=== PATIENT | male | born 1940 | race Caucasian/White ===

== ENCOUNTER 2022-02-19 14:38 | Outpatient (RCR) | payer MEDICARE, SELFPAY ==
[2022-02-19 14:50] VITALS: BP 111/55; PULSE 77; RESP 16; TEMP 36.3; O2SAT 98
[2022-02-19] MEDS: PEGFILGRASTIM 6 MG/0.6 ML SYRINGE SUBCUT (15:13)
== END 2022-02-20 23:59 | disposition home or self-care (01) ==
LOC: CCIC 14:38
PROVIDERS: Visit Provider Clinical Nurse Specialist
DX: C25.9 Malignant neoplasm of pancreas, unspecified (principal); D84.821 Immunodeficiency due to drugs; T45.1X5A Adverse effect of antineoplastic and immunosuppressive drugs, initial encounter
CPT/HCPCS: 96374; 99211; J2506

== ENCOUNTER 2022-02-27 12:08 | Outpatient (CLI) | payer MEDICARE, SELFPAY ==
--- NOTE | 2022-02-27 16:15 | CRLHL7_ITS ---
For Patients: As a result of the 21st Century Cures Act, medical imaging exams and procedure reports are released immediately into your electronic medical record. You may view this report before your referring provider. If you have questions, please contact your health care provider. EXAM: PET-CT SKULL BASE TO THIGH CLINICAL INFORMATION: 81-yo male with metastatic pancreatic cancer. Chemotherapy.. Patient is referred for further characterization/response assessment. TECHNIQUE: Radiopharmaceutical: 10.82 mCi of 18F-FDG Uptake time: 57 minutes Blood glucose level at the time of injection: 85 mg/dL Field of view: Skull base to mid-thighs Intravenous contrast: Not administered Oral contrast: Not administered CT protocol: The low-dose, free-breathing, noncontrast CT performed as part of this study is designed for the purposes of attenuation correction and lesion localization, and it is neither sufficient, nor it should be substituted for diagnostic purposes. COMPARISON: [facility]-CT chest abdomen pelvis 11/22/2021. [facility] PET-CT 10/25/2021 FINDINGS: Physiologic background liver standardized uptake value (SUV mean and SUV max) reported for comparison between PET studies: 1.6 and 2.0. Visualized head and neck: Physiologic uptake in the visualized portions of the brain, extraocular muscles, and salivary glands. Head and neck lymph nodes: No abnormal uptake. Lungs: Similar strand-like atelectasis/scar and subpleural thickening in the anterior right upper lobe with no suspicious uptake is not significantly changed compared to prior PET-CT. Bandlike presumed scarring/atelectasis within the superior segment right lower lobe is slightly more prominent though similar in configuration to prior PET-CT, SUV max 1.7. Previously 1.7. -progressive consolidative opacity within the anterior left upper lobe abuts the pleural surfaces, 4.6 x 2.5 cm, SUV max 2.2 (Fused PET-CT image 76). Findings have increased compared to interval chest CT and prior PET-CT. Previous SUV max 3.5 along the pleural surfaces. Indeterminate for reactive/inflammatory change, progressive fibrosis or potentially neoplasm. Small nodular opacity superior segment left lower lobe is more prominent, 1.1 cm, SUV max 1.6. This finding measured 0.8 cm on interval chest CT. Pleura and pericardium: Small bilateral pleural effusions mildly increased compared to 11/22/[address] Thoracic lymph nodes: Decreased para-aortic and bilateral hilar/perihilar uptake with variable subcarinal vel activity. For example: -para-aortic uptake borders ascending aorta, SUV max 1.9. Previously SUV max 7.0 -left hilar uptake, SUV max 1.9. Previously SUV max 7.1. -subcarinal vel uptake, SUV max 5.1. Previously 10.2. Other chest findings: Physiologic myocardial uptake. Scattered coronary vascular and thoracic aortic calcifications. Right chest port with tip positioned at the cavoatrial junction. Hepatobiliary: No abnormal uptake. Small low-density lesions in the left hepatic lobe do not demonstrate uptake above physiologic background liver, considered indeterminate. Cholelithiasis. Mild periportal edema. Spleen: No abnormal uptake. Splenomegaly. The spleen measures 13.3 x 7.3 x 13.9 cm. Pancreas: Similar prominent cystic changes in the pancreatic head/uncinate process and tail with areas of parenchymal calcification. No abnormal uptake. Adrenals: No abnormal uptake. Kidneys and bladder: No abnormal uptake. Small bilateral hypodense renal lesions do not appear avid above adjacent cortical uptake, possibly cysts though incompletely characterized. Bowel and peritoneum: No suspicious gastric or small bowel uptake or abnormality. Generalized uptake throughout the length of the colon with no definite noncontrast CT abnormality is considered nonspecific. Findings may likely represent medication effect (i.e. Metformin). Diffuse uptake could obscure small avid colon lesions. Colonic diverticulosis without inflammatory change. Pelvic organs: No abnormal uptake. Moderate prostate enlargement. Abdominopelvic lymph nodes: No hypermetabolic abdominopelvic lymph nodes. Musculoskeletal, soft tissues, skin: Generalized osseous uptake is consistent with marrow activation in the setting of current chemotherapy. Widespread sclerotic skeletal metastases throughout the spine, thorax/ribs, pelvis and extremities demonstrate variable low-level uptake not significantly above background marrow uptake. Findings represent a combination of new sclerotic lesions and progressive sclerosis at sites of pre-existing skeletal metastases. Findings compared to prior PET-CT and interval CT chest abdomen pelvis on 11/22/2021. For example: -progressive sclerosis T1 vertebral body, SUV max 3.0. Previously smaller lesion, SUV max 5.9. -increased size T6 sclerotic lesion, SUV max 2.0. Previously SUV max 1.9. -new sclerotic lesion T7 vertebral body, SUV max 2.1. -progressive sclerotic change lateral right 4th rib, SUV max 1.2. Previously smaller sclerotic lesion, SUV max 4.1. -progressive sclerosis right posterior iliac, SUV max 2.7. Previously much smaller focal uptake, SUV max 5.2. -progressive sclerosis left posterior iliac, SUV max 2.9. Previously smaller focal uptake, SUV max 7.4. -progressive sclerosis right pubic ramus, SUV max 2.9. -new sclerotic lesion proximal left femur, SUV max 3.0. Other: Generalized edema in the mesentery with small perihepatic ascites and trace pelvic fluid. Prominent collateral vessels in the upper abdomen and left upper quadrant. Scattered aortoiliac atherosclerotic vascular calcifications. Fat containing left inguinal hernia. IMPRESSION: 1. Similar prominent cystic changes and parenchymal calcification in the pancreatic head/uncinate process and tail with no asymmetric or abnormal uptake. 2. Widespread sclerotic skeletal metastases with low level uptake not significantly above marrow background with sites of new lesions and areas of progressive sclerosis as detailed in the findings. Marrow activation in the setting of active chemotherapy could obscure small avid bone lesions. 3. More prominent left upper lobe consolidative opacity abuts the anterior pleural surface with mild uptake considered indeterminate for progressive reactive/inflammatory change, fibrosis or potentially neoplasm. Small nodular opacity superior segment left lower lobe is more prominent. No significant interval change in right lung parenchymal densities. 4. Variably decreased multi station mediastinal and hilar vel uptake. 5. Small perihepatic ascites, generalized mesenteric edema and trace pelvic fluid. 6. Generalized uptake throughout the colon with no gross noncontrast CT abnormality is considered nonspecific, potentially medication effect (i.e. Metformin). Attention on follow-up. 7. Splenomegaly with no focal uptake. 8. Other nonacute findings as detailed in the body of the report. Dictated by Maicol Pham MD @ 03/03/2022 9:56:24 AM (Electronically Signed)
== END 2022-02-27 12:09 | disposition home or self-care (01) ==
LOC: RAD 12:13
PROVIDERS: Visit Provider Internal Medicine Medical Oncology
DX: C25.1 Malignant neoplasm of body of pancreas (principal); M89.9 Disorder of bone, unspecified; R91.1 Solitary pulmonary nodule
CPT/HCPCS: 78815; A9552

== ENCOUNTER 2022-03-19 13:00 | Outpatient (RCR) | payer MEDICARE, SELFPAY ==
--- NOTE | 2022-02-27 16:17 | ONC.NURNOTE ---
Authorization: User: Teri Germain Cecil Date: 11/29/21 15:11 Type: Eligibility Determination Note... Request received from [facility] for prior authorization of Oxaliplatin J9263, Irinotecan J9206, Leucovorin Calcium J0640, Fluorouracil J9190, Zoledronic Acid J3489, Aloxi J2469, Emend J1453 and Neulasta J2506. Patient carries [employer] as primary insurance. Per Marcelo at [facility] no prior authorization is required for Oxaliplatin, Irinotecan, Leucovorin Calcium, Fluorouracil, Zoledronic Acid, Aloxi, Emend and Neulasta. Call Ref #[id number]
[2022-03-03 14:24] LABS: Basophils Percent Auto 0.2 % (0.0-3.0); Eosinophils Percent Auto 0.9 % (0.0-7.0); Hemoglobin* 10.9 gm/dL (13.5-17.5); Immature Granulocytes Abs Auto 0.49 K/uL (0.00-0.30); Lymphocytes Percent Auto 6.3 % (20-44); Mean Corpuscular HGB Conc 32 gm/dL (32-36); Mean Corpuscular Hemoglobin 31 pg (26-34); Mean Corpuscular Volume 96 fL (80-100); Monocytes Percent Auto 5.1 % (0.0-11.0); Neutrophils Percent Auto 85.5 % (42.0-72.0); Platelet Count* 173 K/uL (140-440); RDW Coefficient of Variation % 16.2 % (11.5-15.5); Red Blood Count 3.54 m/uL (4.30-5.90); White Blood Count* 24.05 K/uL (4.50-11.00)
[2022-03-03 14:40] LABS: Albumin* 3.5 g/dL (3.3-5.0); Chloride* 108 mmol/L (96-114); Potassium* 3.9 mmol/L (3.6-5.1); Sodium* 137 mmol/L (135-149)
[2022-03-03 14:42] LABS: Bilirubin Total* 0.4 mg/dL (0.1-1.5); Creatinine* 0.9 mg/dL (0.5-1.5); Estimated Glomerular Filt Rate 86.34
[2022-03-03 14:43] LABS: Alanine Aminotransferase* 35 U/L (4-50); Alkaline Phosphatase* 672 U/L (40-150); Aspartate Amino Transferase* 45 U/L (12-35); Blood Urea Nitrogen* 23 mg/dL (7-30); Carbon Dioxide* 18 mmol/L (20-32); Glucose* 180 mg/dL (60-115); Total Protein* 5.9 g/dL (6.0-8.3)
[2022-03-03 14:44] LABS: Calcium* 8.6 mg/dL (8.4-10.6)
[2022-03-03 14:59] LABS: Slide Review Reflex Yes
[2022-03-03 15:00] LABS: Slide Review Acceptable Review (Acceptable)
[2022-03-04 08:10] VITALS: BP 151/65; PULSE 75; RESP 16; TEMP 35.8; O2SAT 98
[2022-03-04] MEDS: dexAMETHasone 10 MG in 0.9 % SODIUM CHLORIDE 100 ml 100 ML 404 MG IVPB (09:04)
[2022-03-04] MEDS: PALONOSETRON 0.25 MG/5 ML inj IV (09:04)
[2022-03-04] MEDS: FOSAPREPITANT 150 MG inj 150 MG in 0.9 % SODIUM CHLORIDE 250 ml 250 ML 510 MG IVPB (09:26)
[2022-03-04] MEDS: OXALIPLATIN 5 MG/ML INJ 100 MG, TUBING PRIMARY 1 EACH in 5 % DEXTROSE 250 ML 250 ML 135 MG IV (09:50)
--- NOTE | 2022-03-04 15:54 | ONC.NURNOTE ---
Saw Dr. Ramos yest. MD aware of pts edema of abd and LE. no sob. ls clear. [facility]. up 4 lb today. pt states Dr. Ramos aware of occ back spasms calderon when lying down. pt states slept better and less discomfort last night on the couch slightly elevated.
[2022-03-05 15:58] LABS: Cancer Antigen-GI (CA 19-9) 7662 U/mL (<=35)
[2022-03-06] MEDS: PEGFILGRASTIM 6 MG/0.6 ML SYRINGE SUBCUT (14:29)
[2022-03-06 14:30] VITALS: BP 129/55; PULSE 75; RESP 14; TEMP 36.1; O2SAT 95
[2022-03-17 08:19] VITALS: BP 150/65; PULSE 72; RESP 16; TEMP 36.1; O2SAT 98
[2022-03-17 08:31] LABS: Basophils Percent Auto 0.4 % (0.0-3.0); Eosinophils Percent Auto 1.7 % (0.0-7.0); Hematocrit 35.5 % (37.0-53.0); Hemoglobin* 11.3 gm/dL (13.5-17.5); Immature Granulocytes Abs Auto 0.12 K/uL (0.00-0.30); Lymphocytes Percent Auto 10.5 % (20-44); Mean Corpuscular HGB Conc 32 gm/dL (32-36); Mean Corpuscular Hemoglobin 31 pg (26-34); Mean Corpuscular Volume 98 fL (80-100); Monocytes Percent Auto 7.4 % (0.0-11.0); Platelet Count* 157 K/uL (140-440); RDW Coefficient of Variation % 15.8 % (11.5-15.5); Red Blood Count 3.64 m/uL (4.30-5.90); White Blood Count* 12.21 K/uL (4.50-11.00)
[2022-03-17 08:34] LABS: Slide Review Reflex No
[2022-03-17 08:39] LABS: Albumin* 3.6 g/dL (3.3-5.0); Chloride* 108 mmol/L (96-114); Sodium* 138 mmol/L (135-149)
[2022-03-17 08:42] LABS: Alanine Aminotransferase* 37 U/L (4-50); Alkaline Phosphatase* 671 U/L (40-150); Aspartate Amino Transferase* 49 U/L (12-35); Bilirubin Total* 0.2 mg/dL (0.1-1.5); Blood Urea Nitrogen* 23 mg/dL (7-30); Carbon Dioxide* 22 mmol/L (20-32); Creatinine* 0.7 mg/dL (0.5-1.5); Estimated Glomerular Filt Rate 93 ml/min; Glucose* 211 mg/dL (60-115); Total Protein* 6.9 g/dL (6.0-8.3)
[2022-03-17 08:43] LABS: Calcium* 8.8 mg/dL (8.4-10.6)
--- NOTE | 2022-03-17 09:20 | ONC.NURNOTE ---
states feeling good. working in garden. states no increase in LE. states occ diarrhea. is monitoring for dehydration. jena po well. states [facility] in LE and abd. after taking one tersomide much improvement. uses prn. will call with dose so can be entered on pts med list.
[2022-03-17] MEDS: PALONOSETRON 0.25 MG/5 ML inj IV (09:37)
[2022-03-17] MEDS: dexAMETHasone 10 MG in 0.9 % SODIUM CHLORIDE 100 ml 100 ML 404 MG IVPB (09:37)
[2022-03-17] MEDS: FOSAPREPITANT 150 MG inj 150 MG in 0.9 % SODIUM CHLORIDE 250 ml 250 ML 510 MG IVPB (10:00)
[2022-03-17] MEDS: OXALIPLATIN 5 MG/ML INJ 100 MG, TUBING PRIMARY 1 EACH in 5 % DEXTROSE 250 ML 250 ML 135 MG IV (10:50)
[2022-03-17] MEDS: SODIUM CHLORIDE 0.9 % (FLUSH) 10 ML SYRINGE IVF (14:30)
--- NOTE | 2022-03-18 10:30 | ONC.NURNOTE ---
Patient comes in 03/17 about 1640 with CADD pump off due to alarm. Patient and stated they were just pulling into their driveway and the pump started alarming No disposable pump and they couldn't do anything with it so they were told to return to the [facility] to have it looked at. They arrived and pump disconnected and given to pharmacy for replacement and when that was hooked up that also alarmed No disposable pump. Port flushes well and good blood return. All connections checked and open. Pumps turned off/restarted. Pharmacist again went back and exchanged pump and that seemed to bridges supervisor and run without alarm. Patient and told if the alarm happens overnight to shut pump off and come in right away in am.
--- NOTE | 2022-03-18 13:39 | ONC.NURNOTE ---
1030 Patient arrived stating he was lying on his couch and the CADD pump went off. beep beep 23.45 given. Pharmacy called and brought over a new pump and new medication 40.6 which was the remaining.
[2022-03-19] MEDS: PEGFILGRASTIM 6 MG/0.6 ML SYRINGE SUBCUT (16:13)
[2022-03-19] MEDS: SODIUM CHLORIDE 0.9 % (FLUSH) 10 ML SYRINGE IVF (16:14)
[2022-03-19] MEDS: HEPARIN 500 UNIT/5 ML SYRINGE IVF (16:14)
[2022-03-19 16:26] VITALS: BP 112/70; PULSE 73; RESP 12; TEMP 36.1; O2SAT 97
--- NOTE | 2022-03-21 10:13 | NUTR.NU ---
Nutrition Follow-up: RDN spoke to patient regarding follow-up and diarrhea prevention. Patient stated his diarrhea is pretty bad this time and he usually experiences it in the mornings. He does take Imodium which he reports does help. He has been trying to follow a low-fiber and low-fat diet and including more fluid in his diet. He declined a follow-up visit at this time. Patient's weight has been stable since last follow-up on 01/27/22. Current weight (03/17/22) 140.8 lbs; weight (02/03/22) 139.7 lbs; weight (01/06/22) 142.5 lbs[address] RDN will continue to monitor and follow-up prn.
== END 2022-03-23 23:59 | disposition home or self-care (01) ==
LOC: CCIC 13:00
PROVIDERS: Visit Provider Clinical Nurse Specialist
DX: C25.9 Malignant neoplasm of pancreas, unspecified (principal); T45.1X5A Adverse effect of antineoplastic and immunosuppressive drugs, initial encounter
CPT/HCPCS: 36415; 36591; 80053; 85025; 86301; 96368; 96372; 96376; 96413; 96415; 96416; 96417; 99202; 99205; 99211; 99215; J2506; J0461; J0640; J1100; J1453; J1642; J2469; J7050; J7120; J9190; J9206; J9263

== ENCOUNTER 2022-09-09 13:06 | Emergency (ER) | payer MEDICARE, SELFPAY ==
[2022-09-09] VITALS (10 sets, daily range): BP systolic 125–158; BP diastolic 62–86; PULSE 53–92; RESP 16–18; TEMP 36.2–36.8; O2SAT 95–98; BMI 23.3
--- NOTE | 2022-09-09 14:26 | CRLHL7_ITS ---
For Patients: As a result of the Century Cures Act, medical imaging exams and procedure reports are released immediately into your electronic medical record. You may view this report before your referring provider. If you have questions, please contact your health care provider. INDICATION: Dizziness. TECHNIQUE: Noncontrast CT images acquired through the brain. COMPARISON: None. FINDINGS: Prominence of the ventricles sulci compatible mild diffuse cerebral volume loss. No mass effect or midline shift. The corona white differentiation is maintained. Small focal hypoattenuation within the lateral left cerebellar hemisphere (series 3, image 21), most compatible with age-indeterminate infarction. No acute intracranial hemorrhage or pathologic extra-axial fluid collection. Scattered hypoattenuation in the supratentorial white matter, suggestive of mild chronic microvascular ischemic changes. Intracranial atherosclerotic calcifications. The globes are symmetric. The calvarium is intact. The visualized paranasal sinuses and mastoid air cells are clear. IMPRESSION: 1. No acute intracranial hemorrhage or mass effect. 2. Small focal hypoattenuation within the lateral left cerebellar hemisphere, most compatible with age-indeterminate infarction. Please note that all CT scans at this facility use dose modulation, iterative reconstruction, and/or weight-based dosing when appropriate to reduce radiation dose to as low as reasonably achievable. Dictated by Carroll Laurent MD @ 09/09/2022 3:56:03 PM (Electronically Signed)
--- OUTSIDE RECORDS SUMMARY | 2022-09-09 14:30 | XMS_ITS | Continuity of Care Document ---
:1940 Author Organization [facility] Address [address] [place] [address]- Encounter AHD Date(s): 08/21/22 - 08/21/22 [facility] [address] [place], [place] [address] Discharge Disposition: Home/Self Care Attending Physician: BRUNA NDIAYE MD Admitting Physician: BRUNA NDIAYE MD Referring Physician: BRUNA NDIAYE MD Allergies, Adverse Reactions, Alerts Substance Reaction Severity Status lisinopril unknwon Active Assessment and Plan Diagnostic Tests PendingBody Fluid Culture 08/21/22 Medications ibuprofen 600 mg oral tablet 600 mg = 1 tab, Oral, Q8hr, # 30 tab, 0 Refill(s), 0, Pharmacy: [facility]/pharmacy #[id number], 162.56, cm, 08/21/22 14:11:00 MST, Height, 61.23, kg, 08/21/22 14:11:00 MST, Dosing Weight Start Date: 08/21/22 Stop Date: 08/22/22 Status: OrderedLortab 5/325 oral tablet See Instructions, 1 tab Oral Q 4- 6 HOURS PAIN, # 16 tab, 0 Refill(s), 0, Pharmacy: [facility]/pharmacy #[id number], Acute pain of left knee, 162.56, cm, 08/21/22 14:11:00 MST, Height, 61.23, kg, 08/21/22 14:11:00 MST, Dosing Weight Start Date: 08/21/22 Stop Date: 08/22/22 Status: OrderedpredniSONE 20 mg oral tablet 20 mg = 1 tab, Oral, TID, X 5 day, # 15 tab, 0 Refill(s), 0, Pharmacy: [facility]/pharmacy #[id number], Acute pain of left knee, 162.56, cm, 08/21/22 14:11:00 MST, Height, 61.23, kg, 08/21/22 14:11:00 MST, Dosing Weight Start Date: 08/21/22 Stop Date: 08/26/22 Status: OrderedZofran ODT 4 mg oral tablet, disintegrating 4 mg = 1 tab, Oral, Once Scheduled, one tablet every 4-6 hours for nausea, # 10 tab, 0 Refill(s), 0,Pharmacy: [facility]/pharmacy #[id number], Acute pain of left knee, 162.56, cm, 08/21/22 14:11:00 MST, Height, 61.23, kg, 08/21/22 14:11:00 MST, Dosing Weight Start Date: 08/21/22 Status: Ordered Problem List No Known Problems Results Orders for Microbiology Reports Name Date Gram Stain 08/21/22 Microbiology Reports TEST:Gram Stain STATUS:Auth (Verified) BODY SITE:Synovial SOURCE:Body Fluid COLLECTED DATE/TIME:08/21/22 3:10 PMFINAL REPORTNo Bacteria seen Many White Blood CellsRadiology Reports Exam Date Time Procedure Performing Provider Status 08/21/22 1:34 PM US LE Venous Duplex Left Fortino Fisher ed Notes:(US LE Venous Duplex Left) Reason For Exam: PainREPORT Exam: ultrasound venous, left leg Reason/Indication: 82 year-old with left leg pain Technique: imaging performed with Doppler, no exam for comparison Findings: popliteal fossa shows a 1.0 x 3.5 x 5.0 cm essentially anechoic Larose's cyst otherwise, the peroneal and posterior tibial, popliteal and femoral, deep femoral and saphenofemoraljunction, and common femoral vein segments; all demonstrate normal imaging, compressibility, and flow augmentation IMPRESSION: No DVT Electronically signed by: Mykel Lew MD 08/21/2022 2:52 PM [facility] Final Report Signed By: CONTRIBUTOR_SYSTEM, D_POWERSCRIBE Electronic Signature: 08/21/2022 13:52 Vital Signs Most recent to oldest [Reference Range]: 1 2 Blood Pressure [90-140/60-90 mmHg] 113/42 mmHg (08/21/22 2:11 PM) Blood Pressure Location Right (08/21/22 2:11 PM) Blood Pressure Method Automatic (08/21/22 2:11 PM) Dosing BMI 23 23 (08/21/22 4:58 PM) (08/21/22 2:11 PM) Dosing BSA-Mosteller 1.66 m2 1.66 m2 (08/21/22 4:58 PM) (08/21/22 2:11 PM) Dosing Weight 61.23 kg 61.23 kg (08/21/22 4:58 PM) (08/21/22 2:11 PM) Heart Rate [60-100 bpm] 76 bpm (08/21/22 2:11 PM) Height 162.56 cm 162.56 cm (08/21/22 4:58 PM) (08/21/22 2:11 PM) MAP 66 mmHg (08/21/22 2:11 PM) Pulse/HR Location Right (08/21/22 2:11 PM) Pulse/HR Method Monitor (08/21/22 2:11 PM) Respiratory Rate [14-20 breaths/min] 18 breaths/min (08/21/22 2:11 PM) SpO2/Pulse Oximetry [85-100 %] 98 % (08/21/22 2:11 PM) Temperature Oral [35.8-38 degC] 35.6 degC *LOW* (08/21/22 2:11 PM) Social History Social History Type Response Smoking Status Never smoker entered on: 08/21/22 Sex US.doppler Lower extremity vein - left CONTRIBUTOR_SYSTEM, D_POWERSCRIBE: VERIFY, VERIFY Event Display: Report Exam: ultrasound venous, left leg Reason/Indication: 82 year-old with left leg pain Technique: imaging performed with Doppler, no exam for comparison Findings: popliteal fossa shows a 1.0 x 3.5 x 5.0 cm essentially anechoic Larose's cyst otherwise, the peroneal and posterior tibial, popliteal and femoral, deep femoral and saphenofemoraljunction, and common femoral vein segments; all demonstrate normal imaging, compressibility, and flow augmentation IMPRESSION: No DVT Electronically signed by: Mykel Lew MD 08/21/2022 2:52 PM [facility] Final Report Signed By: CONTRIBUTOR_SYSTEM, SUNITHAD_POWERSCRIBE Electronic Signature: 08/21/2022 13:52 Patient Care team information Care Team PersonnelName: SENTHIL WU, BRUNA Sanford Position: ED Physician R3 Member Role: ED Physician Address: Address: [address] Name: Priscilla Martins RN Position: ED RN R3 Member Role: ED Nurse Name: Socorro Martinez Position: ED Registration/Bed Control CPOE
--- NOTE | 2022-09-09 15:04 | ED_ITS ---
HPI - General Adult General Date Seen: 09/09/22 Chief complaint: Dizziness/Vertigo Stated complaint: From [facility] Time Seen by Provider: 09/09/22 14:11 Source: patient and family Mode of arrival: ambulatory Limitations: no limitations History of Present Illness HPI narrative: patient is 82-year-old gentleman who is a patient of our [facility], I spoke to Madonna who was the nurse practitioner Oncology there patient is being treated there for stage IV pancreatic cancer, Madonna said he was on well, with some increased fatigue, mild shortness of breath, and vertigo episodes. She did a variety of blood test, and a chest x-ray, EKG also. Troponin was elevated at 0.15, in the setting of the patient does not have any chest pain, shortness of breath, he is on agent which is noted to be 2-3% cardiotoxic, so this is a little bit unlikely. He himself just feels fatigued really nothing else, he told me that Madonna told him that he has a heart murmur, which is not surprising given his hemoglobin is 8.5. 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 Related Data Home Medications Medication Instructions Recorded Confirmed brimonidine 0.2 % eye drops 1 drp ophthalmic (eye) BID 02/18/22 08/11/22 empagliflozin 25 mg tablet 25 mg PO DAILY 02/18/22 08/11/22 glipizide 10 mg tablet 10 mg PO BID 02/18/22 08/11/22 latanoprost 0.005 % eye drops 1 drp ophthalmic (eye) QPM 02/18/22 08/11/22 lorazepam 0.5 mg tablet 0.5 mg PO TID 02/18/22 08/11/22 metformin 1,000 mg tablet 1,000 mg PO BID 02/18/22 08/11/22 ondansetron 8 mg oral soluble film 8 mg PO Q8-12H PRN 02/18/22 08/11/22 tamsulosin 0.4 mg capsule 0.4 mg PO .Bedtime 02/27/22 08/11/22 apixaban 5 mg tablet 5 mg PO BID 03/03/22 08/11/22 insulin glargine 100 unit/mL (3 5 unit subcut QAM 07/14/22 08/11/22 mL) subcutaneous pen psyllium 1 tsp PO ONCE 07/14/22 08/11/22 calcium carbonate 600 mg-vitamin 2 tab PO DAILY 07/28/22 08/11/22 D3 10 mcg (400 unit) tablet (Calcium 600 + D(3)) Previous Rx's Medication Instructions Recorded prochlorperazine maleate 10 mg 10 mg PO Q4-6H PRN nausea and 07/15/22 tablet vomiting #30 tabs Magic Mouthwash 5 ml PO QID PRN mouth sores #240 mL 08/12/22 (Lidocaine/Benadryl/Maalox) 120 mL suspension Allergies Allergy/AdvReac Type Severity Reaction Status Date / Time pioglitazone Allergy Severe Chest Pain Verified 09/09/22 18:44 lisinopril Allergy Mild Cough Verified 09/09/22 18:44 Review of Systems Status of ROS: Reports: 10 or more systems reviewed and unremarkable except as noted in History and below [facility] Medical History (Updated 09/09/22 @ 20:33 by Diego Hayes MD) Acute gout of left knee Health care directive on file (03/04/19) Immunocompromised state due to drug therapy Mucositis (ulcerative) due to antineoplastic therapy SARS-CoV-2 positive (~08/2021) Social History (Updated 09/09/22 @ 16:59 by Liudmila Young APRN) Smoking Status: Never smoker Second hand tobacco smoke exposure: No How often do you have a drink containing alcohol: never How often do you have six or more drinks on one occasion: Never AUDIT-C Alcohol total score: 0 Non-prescribed substance use: denies use Little interest or pleasure in doing things: not at all Feeling down, depressed, or hopeless: nearly every day service: No Exam Narrative: Exam Narrative: Patient is seen in room 8, no apparent distress very nice. With his present. Patient is speaking normally, no problem with slurring words, oriented x3. Head eyes ears nose and throat exam show equal pupils, no scleral icterus, extraocular muscles are normal, no facial droop, speech is normal, trachea normal and midline. Thyroid normal midline palpable not enlarged. Chest shows symmetrical rise bilaterally, normal auscultation with no wheezes, no increased work of breathing, no overt bruising or lesions seen, no tenderness is noted on auscultation. Heart sounds Show systolic murmur, along the left sternal border, 2/6, no S3 no S4.. Abdomen shows no obvious masses or hepatosplenomegaly, no organomegaly, bowel sounds are normal in all quadrants. No tenderness is noted also in all quadrants. Upper and lower extremities show normal power, normal range of motion, pulses are normal, sensations normal, fine motor movements are normal, pelvis is stable to rocking. Cervical spine shows normal range of motion, and palpably not tender. Thoracic spine shows normal range of motion, and palpably not tender, lumbar spine shows no tenderness to palpation percussion and is otherwise normal range of motion. Skin shows no rashes, petechiae or eccymosis. Const: Vital Signs, click to edit/add: Vital Signs - 24 hr 09/09/22 14:13 09/09/22 17:31 09/09/22 18:31 Temperature 97.2 F L 97.6 F 97.6 F Pulse Rate Pulse Rate [Left R adial] 92 73 Respiratory Rate 16 Blood Pressure Blood Pressure [Le ft Upper Arm] 154/71 H 153/70 H Pulse Oximetry 98 98 Oxygen Delivery Me thod Room Air Room Air 09/09/22 19:10 09/09/22 19:30 09/09/22 20:00 Temperature 97.5 F L 97.7 F 97.6 F Pulse Rate 75 68 Pulse Rate [Left R adial] Respiratory Rate 18 16 16 Blood Pressure 150/70 H 155/84 H 151/63 H Blood Pressure [Le ft Upper Arm] Pulse Oximetry 97 95 96 Oxygen Delivery Me thod 09/09/22 20:30 Temperature 97.8 F Pulse Rate 70 Pulse Rate [Left R adial] Respiratory Rate 16 Blood Pressure 158/65 H Blood Pressure [Le ft Upper Arm] Pulse Oximetry 97 Oxygen Delivery Me thod Documenting provider has reviewed patient's vital signs: yes Course Course Hospital Course: discussed with the patient, he is feeling better he is having no chest pain, his chest CT did not show any evidence of pulmonary embolism, there is metastatic disease but this is known. He probably has progression but I am not in a firm placed tell him this. Nevertheless I think he will improve with the elevated hemoglobin, he is due to follow-up the Madonna on Thursday, I have encouraged him to return if he has increased chest pain shortness of breath or any other symptoms. Vital Signs Vital signs: Initial Vital Signs Temperature 97.2 F L 09/09/22 14:13 Temperature Source Temporal Artery Scan 09/09/22 14:13 Pulse Rate 92 09/09/22 14:13 Blood Pressure 154/71 H 09/09/22 14:13 Blood Pressure Mean 98 09/09/22 14:13 Blood Pressure Position Sitting 09/09/22 14:13 Pulse Oximetry 98 09/09/22 14:13 Oxygen Delivery Method 09/09/22 14:13 Vital Signs Temperature 97.2 F L 09/09/22 14:13 Pulse Rate 92 09/09/22 14:13 Blood Pressure 154/71 H 09/09/22 14:13 Pulse Oximetry 98 09/09/22 14:13 Oxygen Delivery Method 09/09/22 14:13 Temperature 97.8 F 09/09/22 20:30 Pulse Rate 70 09/09/22 20:30 Respiratory Rate 16 09/09/22 20:30 Blood Pressure 158/65 H 09/09/22 20:30 Pulse Oximetry 97 09/09/22 20:30 Oxygen Delivery Method 09/09/22 18:31 Medical Decision Making MDM Narrative Medical decision making narrative: During the evaluation of this patient I considered multiple differential diagnosis is. The life-threatening differential diagnosis include coronary disease/TX, pulmonary embolism, pneumothorax, pneumonia, and aortic dissection. Other differential diagnosis included but were not limited to pericarditis, myocarditis, chest wall pain, GERD, esophageal rupture, rib fracture contusion, pleurisy, as well as other etiologies. Medical Records Medical records reviewed: Yes I reviewed the patient's medical records Lab Data Labs: Lab Results 09/09/22 09/09/22 09/09/22 Range/Units 15:01 15:01 15:01 WBC 3.66 L (4.50-11.00) K/uL RBC 2.52 L (4.30-5.90) m/uL Hgb 8.2 L (13.5-17.5) gm/dL Hct 24.6 L (37.0-53.0) % MCV 98 (80-100) fL MCH 33 (26-34) pg MCHC 33 (32-36) gm/dL RDW Coeff of Aftab 15.3 (11.5-15.5) % Plt Count 39 L* (140-440) K/uL Neut % (Auto) 57.6 (42.0-72.0) % Lymph % (Auto) 27.6 (20-44) % Sawyer % (Auto) 11.5 H (0.0-11.0) % Eos % (Auto) 2.7 (0.0-7.0) % Baso % (Auto) 0.3 (0.0-3.0) % Neut # (Auto) 2.10 (1.7-7.0) K/uL Lymph # (Auto) 1.00 (0.90-2.90) K/uL Sawyer # (Auto) 0.40 (0.00-0.90) K/UL Eos # (Auto) 0.10 (0.00-0.50) K/uL Baso # (Auto) 0.00 (0.00-0.30) K/uL INR (0.91-1.10) APTT (23-33) Seconds D-Dimer Quant (PE/DVT) (0.00-0.50) ug/ml Sodium 137 (135-149) mmol/L Potassium 3.7 (3.6-5.1) mmol/L Chloride 107 (96-114) mmol/L Carbon Dioxide 25 (20-32) mmol/L BUN 21 (7-30) mg/dL Creatinine 0.8 (0.5-1.5) mg/dL Estimated Creat Clear 48.51 Estimated GFR 89 ml/min Glucose 205 H (60-115) mg/dL Calcium 8.4 (8.4-10.6) mg/dL Troponin I (0.01-0.04) ng/mL NT-Pro-B Natriuret Pep pg/mL SARS-CoV-2 (PCR) Negative SARS-CoV-2 (Negative) Influenza Type A (PCR) Negative PCR FLU A (Negative) Influenza Type B (PCR) Negative PCR FLU B (Negative) RSV (PCR) Negative PCR RSV (Negative) Blood Type Antibody Screen Crossmatch (AHG) 09/09/22 09/09/22 09/09/22 Range/Units 15:01 15:01 16:42 WBC (4.50-11.00) K/uL RBC (4.30-5.90) m/uL Hgb (13.5-17.5) gm/dL Hct (37.0-53.0) % MCV (80-100) fL MCH (26-34) pg MCHC (32-36) gm/dL RDW Coeff of Aftab (11.5-15.5) % Plt Count (140-440) K/uL Neut % (Auto) (42.0-72.0) % Lymph % (Auto) (20-44) % Sawyer % (Auto) (0.0-11.0) % Eos % (Auto) (0.0-7.0) % Baso % (Auto) (0.0-3.0) % Neut # (Auto) (1.7-7.0) K/uL Lymph # (Auto) (0.90-2.90) K/uL Sawyer # (Auto) (0.00-0.90) K/UL Eos # (Auto) (0.00-0.50) K/uL Baso # (Auto) (0.00-0.30) K/uL INR 1.16 H (0.91-1.10) APTT 42 H (23-33) Seconds D-Dimer Quant (PE/DVT) 6.68 H (0.00-0.50) ug/ml Sodium (135-149) mmol/L Potassium (3.6-5.1) mmol/L Chloride (96-114) mmol/L Carbon Dioxide (20-32) mmol/L BUN (7-30) mg/dL Creatinine (0.5-1.5) mg/dL Estimated Creat Clear Estimated GFR ml/min Glucose (60-115) mg/dL Calcium (8.4-10.6) mg/dL Troponin I 0.13 H* (0.01-0.04) ng/mL NT-Pro-B Natriuret Pep 2670 pg/mL SARS-CoV-2 (PCR) (Negative) Influenza Type A (PCR) (Negative) Influenza Type B (PCR) (Negative) RSV (PCR) (Negative) Blood Type O Positive Antibody Screen NEGATIVE Crossmatch (AHG) See Detail Imaging Data CT scan - chest: Attestation: I have reviewed the pertinent imaging results. My impression: Patient: JERAMY NIELSEN Facility:?[facility] Patient ID:?[id number] Site Patient ID:?[id number]. Site :?[id number] Study:?CT Chest Angio PE PROTOCOL-09/09/2022 7:20:40 PM Ordering Physician:Elaina Cortez Final Report: INDICATION: Shortness of breath, elevated D-dimer, metastatic pancreatic cancer TECHNIQUE: CT chest pulmonary PE protocol acquired with 95 cc Isovue 370 IV contrast. COMPARISON: Chest radiograph September 09, 2022 FINDINGS: Cardiovascular structures: Normal vascular enhancement of the pulmonary arteries, no sign of pulmonary embolism. Heart size is normal. Coronary artery calcifications. No sign of aneurysm in the thoracic aorta. Right-sided Port-A-Cath tip terminates at the level of the cavoatrial junction. Mediastinum and adeola: No mass or adenopathy. Calcified right hilar lymph nodes. Lungs: 2.8 x 1.9 x 4.1 mass in the right lower lobe. Spiculated 2.3 x 3.9 x 3.3 cm mass in the left upper lobe, previously 4.6 x 2.5 cm. Spiculated 1.3 x 2.1 x 2.5 cm mass in the lateral aspect of the left lower lobe, previously 1.1cm.. 1.0 x 0.7 x 1.0 cm mass in the right upper lobe. Scattered areas of linear atelectasis or scarring in both lungs. Pleura and pericardium: Moderate left pleural effusion. Partially loculated small right pleural effusion. These are both increased compared to the prior study. Chest wall and axilla: No mass or adenopathy. Upper abdomen: 5.4 x 3.2 5.4 cm area hypodensity in the lateral aspect the superior spleen. Cholelithiasis. There are a few simple cysts in the liver. Small amount of ascites. Calcification in the pancreatic head. Diffuse vascular calcifications. Colonic diverticulosis. Mild left hydronephrosis and proximal left hydroureter, unchanged compared to the prior study. Bones: Scattered sclerotic lesions throughout the bones, increased in size and number compared to the prior exam. IMPRESSION: No pulmonary embolism or pneumonia. Moderate left and partially loculated small right pleural effusions, increased compared to the prior study. Interval increase in size pulmonary masses and sclerotic lesions throughout the skeleton concerning for increasing metastatic disease. Focal area of hypodensity in the spleen may represent splenic infarction or less likely metastatic disease. This is new compared to the prior study. Cholelithiasis. Mild left hydronephrosis and proximal left hydroureter, unchanged compared to the prior study. In Coronary artery disease. Please note that all CT scans at this facility use dose modulation, iterative reconstruction, and/or weight-based dosing when appropriate to reduce radiation dose to as low as reasonably achievable. Dictated by Adriane Cross MD @ 09/09/2022 7:50:08 PM ----- ADDENDUM ----- Addendum: : Comparison also made with a PET CT of the chest, abdomen and pelvis from February 27, 2022. Dictated by Adriane Cross MD @ Sep 09 2022 7:50PM (Electronic Signature) ECG Data Attestation: I personally reviewed and interpreted this ECG as follows: Interpretation: Normal sinus rhythm right bundle-branch block no acute ST wave changes. Discharge Plan Discharge Clinical Impression: Metastasis from pancreatic cancer, Anemia, Elevated troponin Patient Disposition: Home w/ Parent or Adult Condition: Stable Instructions: Pancreatic Cancer (DC), Anemia (ED), High Troponin Levels (ED) Additional Instructions: home rest continue medications as directed, follow-up with Madonna on Thursday for recheck and blood test. Return to the emergency room if developing chest pain, shortness of breath, profound weakness, or other symptoms. Prescriptions: No Action tamsulosin 0.4 mg capsule 0.4 mg PO .Bedtime psyllium Powder 1 tsp PO ONCE Rx Instructions: mix into at least 4 oz water or juice before administering insulin glargine 100 unit/mL (3 mL) insulin pen 5 unit subcut QAM prochlorperazine maleate 10 mg tablet 10 mg PO Q4-6H PRN (Reason: nausea and vomiting) Qty: 30 1RF Rx Instructions: DNExceed 4 doses/24h Magic Mouthwash (Lidocaine/Benadryl/Maalox) 120 mL suspension 5 ml PO QID PRN (Reason: mouth sores) Qty: 240 0RF Rx Instructions: Lidocaine Viscous 2 % mucosal solution 40 mL; Maalox 200 mg-200 mg-20 mg/5 mL oral suspension 40 mL; Benadryl 12.5 mg/5 mL oral elixir 40 mL; Per 120 mL SWISH AND SPIT. MAY COMPOUND IF FIRST PRODUCT IS NOT AVAILABLE. calcium carbonate-vitamin D3 [Calcium 600 + D(3)] 600 mg-10 mcg (400 unit) tablet 2 tab PO DAILY brimonidine 0.2 % drops 1 drp ophthalmic (eye) BID Rx Instructions: administer approximately 8 hours apart empagliflozin 25 mg tablet 25 mg PO DAILY glipizide 10 mg tablet 10 mg PO BID latanoprost 0.005 % drops 1 drp ophthalmic (eye) QPM lorazepam 0.5 mg tablet 0.5 mg PO TID Label Comments: PRN metformin 1,000 mg tablet 1,000 mg PO BID ondansetron 8 mg film 8 mg PO Q8-12H PRN apixaban 5 mg tablet 5 mg PO BID Follow Up/Referrals: Provider,Not a Local [Primary Care Provider] - Stand Alone Forms: [facility] Inst[facility]
[2022-09-09 15:29] LABS: Basophils Percent Auto 0.3 % (0.0-3.0); Eosinophils Percent Auto 2.7 % (0.0-7.0); Hematocrit 24.6 % (37.0-53.0); Hemoglobin* 8.2 gm/dL (13.5-17.5); Immature Granulocytes Pct Auto 0.3 %; Lymphocytes Percent Auto 27.6 % (20-44); Mean Corpuscular HGB Conc 33 gm/dL (32-36); Mean Corpuscular Hemoglobin 33 pg (26-34); Mean Corpuscular Volume 98 fL (80-100); Monocytes Percent Auto 11.5 % (0.0-11.0); Neutrophils Percent Auto 57.6 % (42.0-72.0); RDW Coefficient of Variation % 15.3 % (11.5-15.5); Red Blood Count 2.52 m/uL (4.30-5.90); White Blood Count* 3.66 K/uL (4.50-11.00)
[2022-09-09 15:38] LABS: Chloride* 107 mmol/L (96-114); Potassium* 3.7 mmol/L (3.6-5.1); Sodium* 137 mmol/L (135-149)
[2022-09-09 15:39] LABS: Platelet Count* 39 K/uL (140-440); Slide Review Reflex No
[2022-09-09 15:41] LABS: Blood Urea Nitrogen* 21 mg/dL (7-30); Carbon Dioxide* 25 mmol/L (20-32); Creatinine* 0.8 mg/dL (0.5-1.5); Est. Creatinine Clearance* 48.51; Estimated Glomerular Filt Rate 89 ml/min; Glucose* 205 mg/dL (60-115)
[2022-09-09 15:42] LABS: Calcium* 8.4 mg/dL (8.4-10.6)
[2022-09-09 15:49] LABS: PCR FLU A Negative PCR FLU A (Negative); PCR FLU B Negative PCR FLU B (Negative); PCR RSV Negative PCR RSV (Negative)
[2022-09-09 15:52] LABS: INR 1.16 (0.91-1.10); Prothrombin Time 15.5 Seconds
[2022-09-09 15:53] LABS: Partial Thromboplastin Time* 42 Seconds (23-33); SARS PCR* Negative SARS-CoV-2 (Negative)
[2022-09-09 15:57] LABS: NT Pro B Type NatriureticPept* 2670 pg/mL; Troponin I* 0.13 ng/mL (0.01-0.04)
[2022-09-09 16:45] LABS: D Dimer Quantitative* 6.68 ug/ml (0.00-0.50)
[2022-09-09] MEDS: ACETAMINOPHEN 500 MG TABLET 1000 MG PO (17:31)
--- NOTE | 2022-09-09 18:18 | CRLHL7_ITS ---
For Patients: As a result of the Century Cures Act, medical imaging exams and procedure reports are released immediately into your electronic medical record. You may view this report before your referring provider. If you have questions, please contact your health care provider. INDICATION: Shortness of breath, elevated D-dimer, metastatic pancreatic cancer TECHNIQUE: CT chest pulmonary PE protocol acquired with 95 cc Isovue 370 IV contrast. COMPARISON: Chest radiograph September 09, 2022 FINDINGS: Cardiovascular structures: Normal vascular enhancement of the pulmonary arteries, no sign of pulmonary embolism. Heart size is normal. Coronary artery calcifications. No sign of aneurysm in the thoracic aorta. Right-sided Port-A-Cath tip terminates at the level of the cavoatrial junction. Mediastinum and adeola: No mass or adenopathy. Calcified right hilar lymph nodes. Lungs: 2.8 x 1.9 x 4.1 mass in the right lower lobe. Spiculated 2.3 x 3.9 x 3.3 cm mass in the left upper lobe, previously 4.6 x 2.5 cm. Spiculated 1.3 x 2.1 x 2.5 cm mass in the lateral aspect of the left lower lobe, previously 1.1cm.. 1.0 x 0.7 x 1.0 cm mass in the right upper lobe. Scattered areas of linear atelectasis or scarring in both lungs. Pleura and pericardium: Moderate left pleural effusion. Partially loculated small right pleural effusion. These are both increased compared to the prior study. Chest wall and axilla: No mass or adenopathy. Upper abdomen: 5.4 x 3.2 5.4 cm area hypodensity in the lateral aspect the superior spleen. Cholelithiasis. There are a few simple cysts in the liver. Small amount of ascites. Calcification in the pancreatic head. Diffuse vascular calcifications. Colonic diverticulosis. Mild left hydronephrosis and proximal left hydroureter, unchanged compared to the prior study. Bones: Scattered sclerotic lesions throughout the bones, increased in size and number compared to the prior exam. IMPRESSION: No pulmonary embolism or pneumonia. Moderate left and partially loculated small right pleural effusions, increased compared to the prior study. Interval increase in size pulmonary masses and sclerotic lesions throughout the skeleton concerning for increasing metastatic disease. Focal area of hypodensity in the spleen may represent splenic infarction or less likely metastatic disease. This is new compared to the prior study. Cholelithiasis. Mild left hydronephrosis and proximal left hydroureter, unchanged compared to the prior study. In Coronary artery disease. Please note that all CT scans at this facility use dose modulation, iterative reconstruction, and/or weight-based dosing when appropriate to reduce radiation dose to as low as reasonably achievable. Dictated by Adriane Cross MD @ 09/09/2022 7:50:08 PM (Electronically Signed)
[2022-09-09] MEDS: SODIUM CHLORIDE 0.9 % (FLUSH) 10 ML SYRINGE 5 ML IVF ×2 (18:25→22:52)
[2022-09-09] MEDS: FUROSEMIDE 10 MG/ML inj 20 MG IV (18:25)
--- NOTE | 2022-09-09 19:41 | ED.NURSE ---
Blood transfusion started at 75ml/hr. Monitored patient for the first 15 minutes, which was uneventful. Increased rate to 100ml/hour.
[2022-09-09] MEDS: HEPARIN 500 UNIT/5 ML SYRINGE IVF (22:52)
== END 2022-09-09 23:07 | disposition home or self-care (01) ==
PROVIDERS: Emergency Provider Family Medicine
DX: D64.9 Anemia, unspecified (principal); C25.9 Malignant neoplasm of pancreas, unspecified; Z13.0 Encounter for screening for diseases of the blood and blood-forming organs and certain disorders involving the immune mechanism
CPT/HCPCS: 36415; 36430; 70450; 71260; 80048; 83880; 84484; 85025; 85379; 85610; 85730; 86850; 86900; 86901; 86922; 87502; 87634; 87635; 93005; 96374; 99285; A9270; J1642; J1940; P9016; Q9967

== ENCOUNTER 2022-09-16 08:00 | Outpatient (RCR) | payer MEDICARE, SELFPAY ==
[2022-03-31 08:29] LABS: Basophils Percent Auto 0.4 % (0.0-3.0); Eosinophils Percent Auto 1.8 % (0.0-7.0); Hematocrit 34.5 % (37.0-53.0); Lymphocytes Percent Auto 8.9 % (20-44); Mean Corpuscular HGB Conc 32 gm/dL (32-36); Mean Corpuscular Hemoglobin 31 pg (26-34); Mean Corpuscular Volume 97 fL (80-100); Monocytes Percent Auto 6.8 % (0.0-11.0); Neutrophils Percent Auto 80.6 % (42.0-72.0); Platelet Count* 141 K/uL (140-440); RDW Coefficient of Variation % 15.5 % (11.5-15.5); Red Blood Count 3.56 m/uL (4.30-5.90); White Blood Count* 12.91 K/uL (4.50-11.00)
[2022-03-31 08:34] LABS: Slide Review Reflex No
[2022-03-31 08:42] LABS: Albumin* 3.5 g/dL (3.3-5.0); Chloride* 109 mmol/L (96-114); Potassium* 3.9 mmol/L (3.6-5.1); Sodium* 138 mmol/L (135-149)
[2022-03-31 08:44] LABS: Creatinine* 0.7 mg/dL (0.5-1.5); Estimated Glomerular Filt Rate 93 ml/min
[2022-03-31 08:45] LABS: Alanine Aminotransferase* 32 U/L (4-50); Alkaline Phosphatase* 573 U/L (40-150); Aspartate Amino Transferase* 41 U/L (12-35); Bilirubin Total* 0.2 mg/dL (0.1-1.5); Blood Urea Nitrogen* 19 mg/dL (7-30); Carbon Dioxide* 19 mmol/L (20-32); Glucose* 179 mg/dL (60-115); Total Protein* 6.6 g/dL (6.0-8.3)
[2022-03-31 08:46] LABS: Calcium* 8.2 mg/dL (8.4-10.6)
[2022-03-31] MEDS: PALONOSETRON 0.25 MG/5 ML inj IVP (09:46)
[2022-03-31] MEDS: dexAMETHasone 10 MG in 0.9 % SODIUM CHLORIDE 100 ml 100 ML 404 MG IVPB (09:46)
[2022-03-31] MEDS: FOSAPREPITANT 150 MG inj 150 MG in 0.9 % SODIUM CHLORIDE 250 ml 250 ML 510 MG IVPB (10:06)
[2022-03-31] MEDS: OXALIPLATIN 5 MG/ML INJ 100 MG, TUBING PRIMARY 1 EACH in 5 % DEXTROSE 250 ML 250 ML 135 MG IV (10:46)
[2022-04-01 14:57] LABS: Cancer Antigen-GI (CA 19-9) 7410 U/mL (<=35)
[2022-04-02] MEDS: PEGFILGRASTIM 6 MG/0.6 ML SYRINGE SUBCUT (13:43)
[2022-04-02] MEDS: HEPARIN 500 UNIT/5 ML SYRINGE IVF (13:44)
[2022-04-02] MEDS: SODIUM CHLORIDE 0.9 % (FLUSH) 10 ML SYRINGE IVF (13:44)
[2022-04-02 13:45] VITALS: BP 121/65; PULSE 72; RESP 16; TEMP 36.6; O2SAT 96
--- NOTE | 2022-04-07 14:11 | ONC.NURNOTE ---
Patient called office stating that diarrhea is worse. Patient used to just have diarrhea in the AM and take one immodium with good results. He continues to have diarrhea whenever he eats since Thursday, he has only been taking 1-2 tabs per day. Patient instructed to take 2 tabs of immodium with first loose stool of the day, and one more with each stool (up to 8 per day). Also instructed on eating the BRAT diet, patient has been seen by canvas shop laborer, so he is aware of this.
[2022-04-14 08:10] VITALS: BP 159/70; PULSE 72; RESP 16; TEMP 35.8; O2SAT 98
[2022-04-14 08:27] LABS: Basophils Absolute Auto 0.03 K/uL (0.00-0.30); Basophils Percent Auto 0.3 % (0.0-3.0); Eosinophils Absolute Auto 0.15 K/uL (0.00-0.50); Eosinophils Percent Auto 1.5 % (0.0-7.0); Hematocrit 34.8 % (37.0-53.0); Hemoglobin* 11.2 gm/dL (13.5-17.5); Immature Granulocytes Abs Auto 0.11 K/uL (0.00-0.30); Lymphocytes Percent Auto 11.2 % (20-44); Mean Corpuscular HGB Conc 32 gm/dL (32-36); Mean Corpuscular Hemoglobin 31 pg (26-34); Mean Corpuscular Volume 98 fL (80-100); Monocytes Percent Auto 7.2 % (0.0-11.0); Neutrophils Percent Auto 78.7 % (42.0-72.0); Platelet Count* 128 K/uL (140-440); RDW Coefficient of Variation % 15.6 % (11.5-15.5); Red Blood Count 3.57 m/uL (4.30-5.90); White Blood Count* 9.81 K/uL (4.50-11.00)
[2022-04-14 08:37] LABS: Albumin* 3.7 g/dL (3.3-5.0); Chloride* 106 mmol/L (96-114); Potassium* 3.7 mmol/L (3.6-5.1); Slide Review Reflex No; Sodium* 138 mmol/L (135-149)
[2022-04-14 08:39] LABS: Bilirubin Total* 0.3 mg/dL (0.1-1.5); Creatinine* 0.7 mg/dL (0.5-1.5); Estimated Glomerular Filt Rate 93 ml/min
[2022-04-14 08:40] LABS: Alanine Aminotransferase* 37 U/L (4-50); Alkaline Phosphatase* 599 U/L (40-150); Aspartate Amino Transferase* 49 U/L (12-35); Blood Urea Nitrogen* 21 mg/dL (7-30); Calcium* 8.5 mg/dL (8.4-10.6); Carbon Dioxide* 24 mmol/L (20-32); Glucose* 284 mg/dL (60-115); Total Protein* 6.9 g/dL (6.0-8.3)
[2022-04-14] MEDS: dexAMETHasone 10 MG in 0.9 % SODIUM CHLORIDE 100 ml 100 ML 404 MG IVPB (09:24)
[2022-04-14] MEDS: PALONOSETRON 0.25 MG/5 ML inj IV (09:24)
[2022-04-14] MEDS: FOSAPREPITANT 150 MG inj 150 MG in 0.9 % SODIUM CHLORIDE 250 ml 250 ML 510 MG IVPB (09:44)
[2022-04-14] MEDS: OXALIPLATIN 5 MG/ML INJ 100 MG, TUBING PRIMARY 1 EACH in 5 % DEXTROSE 250 ML 250 ML 135 MG IV (10:46)
[2022-04-14] MEDS: SODIUM CHLORIDE 0.9 % (FLUSH) 10 ML SYRINGE IVF (15:26)
[2022-04-16 14:44] VITALS: BP 151/66; PULSE 61; RESP 16; TEMP 36.2; O2SAT 98
--- NOTE | 2022-04-16 14:49 | NUTR.NU ---
Nutrition Follow-up: RDN continues to monitor patient. Patient is taking Imodium for diarrhea with recent increase for better management -- per nursing documentation, patient reported no diarrhea recently. Patient's weight has been stable since last follow-up on 03/17/22. Current weight (04/14/22) 141.8 lbs; weight (03/17/22) 140.8 lbs; weight (02/03/22) 139.7 lbs; weight (01/06/22) 142.5 lbs[address] RDN will continue to monitor and follow-up prn.
[2022-04-16] MEDS: HEPARIN 500 UNIT/5 ML SYRINGE IVF (14:55)
[2022-04-16] MEDS: SODIUM CHLORIDE 0.9 % (FLUSH) 10 ML SYRINGE IVF (14:55)
[2022-04-16] MEDS: PEGFILGRASTIM 6 MG/0.6 ML SYRINGE SUBCUT (14:59)
[2022-04-29 08:14] VITALS: BP 133/66; PULSE 65; RESP 16; TEMP 36.2; O2SAT 99
[2022-04-29 08:31] LABS: Basophils Absolute Auto 0.03 K/uL (0.00-0.30); Basophils Percent Auto 0.3 % (0.0-3.0); Eosinophils Absolute Auto 0.18 K/uL (0.00-0.50); Eosinophils Percent Auto 1.6 % (0.0-7.0); Hematocrit 34.7 % (37.0-53.0); Hemoglobin* 11.3 gm/dL (13.5-17.5); Immature Granulocytes Abs Auto 0.16 K/uL (0.00-0.30); Lymphocytes Percent Auto 9.5 % (20-44); Mean Corpuscular HGB Conc 33 gm/dL (32-36); Mean Corpuscular Hemoglobin 31 pg (26-34); Mean Corpuscular Volume 96 fL (80-100); Monocytes Percent Auto 6.8 % (0.0-11.0); Neutrophils Percent Auto 80.3 % (42.0-72.0); Platelet Count* 140 K/uL (140-440); RDW Coefficient of Variation % 15.8 % (11.5-15.5); White Blood Count* 10.96 K/uL (4.50-11.00)
[2022-04-29 08:38] LABS: Slide Review Reflex No
[2022-04-29 08:42] LABS: Albumin* 3.8 g/dL (3.3-5.0); Chloride* 105 mmol/L (96-114)
[2022-04-29 08:43] LABS: Sodium* 136 mmol/L (135-149)
[2022-04-29 08:45] LABS: Alkaline Phosphatase* 529 U/L (40-150); Aspartate Amino Transferase* 35 U/L (12-35); Bilirubin Total* 0.3 mg/dL (0.1-1.5); Blood Urea Nitrogen* 21 mg/dL (7-30); Carbon Dioxide* 21 mmol/L (20-32); Creatinine* 0.7 mg/dL (0.5-1.5); Estimated Glomerular Filt Rate 93 ml/min; Total Protein* 6.8 g/dL (6.0-8.3)
[2022-04-29 08:46] LABS: Alanine Aminotransferase* 33 U/L (4-50); Calcium* 8.8 mg/dL (8.4-10.6); Glucose* 274 mg/dL (60-115)
--- NOTE | 2022-04-29 09:11 | ONC.NURNOTE ---
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 states not painful but tingling more. slight pink and dry heels. no open areas or redness. preexisting fungus of all nails. no reddness of skin around nails. enc non sented/ non alcohol cream in a light layer. Liudmila Mansfield APRN seeing ptHarshad Quan would like to stop Oxaliplatin due to above. states occ diarrhea. takes 2 lomotil at a time with relief. rarely needs 4 in a day. reviewed dehydration. states capsules diff to swallow. enc using applesauce or pudding.
[2022-04-29 10:27] LABS: Magnesium* 1.9 mg/dL (1.5-2.6)
[2022-04-29] MEDS: PALONOSETRON 0.25 MG/5 ML inj IV (10:29)
[2022-04-29] MEDS: dexAMETHasone 10 MG in 0.9 % SODIUM CHLORIDE 100 ml 100 ML 404 MG IVPB (10:29)
[2022-04-29] MEDS: FOSAPREPITANT 150 MG inj 150 MG in 0.9 % SODIUM CHLORIDE 250 ml 250 ML 510 MG IVPB (10:55)
[2022-04-29] MEDS: 5 % DEXTROSE 250 ML IV (11:59)
[2022-04-29] MEDS: SODIUM CHLORIDE 0.9 % (FLUSH) 10 ML SYRINGE IVF (12:00)
[2022-04-29] MEDS: HEPARIN 500 UNIT/5 ML SYRINGE IVF (12:00)
[2022-04-30 11:05] LABS: Cancer Antigen-GI (CA 19-9) 8060 U/mL (<=35)
[2022-05-01 11:50] VITALS: BP 127/60; PULSE 64; RESP 16; TEMP 36.2; O2SAT 98
[2022-05-01] MEDS: PEGFILGRASTIM 6 MG/0.6 ML SYRINGE SUBCUT (11:55)
[2022-05-01] MEDS: HEPARIN 500 UNIT/5 ML SYRINGE IVF (11:55)
[2022-05-01] MEDS: SODIUM CHLORIDE 0.9 % (FLUSH) 10 ML SYRINGE IVF (11:55)
[2022-05-12 08:42] LABS: Basophils Percent Auto 0.4 % (0.0-3.0); Eosinophils Percent Auto 1.8 % (0.0-7.0); Hematocrit 34.9 % (37.0-53.0); Hemoglobin* 11.3 gm/dL (13.5-17.5); Lymphocytes Percent Auto 9.7 % (20-44); Mean Corpuscular HGB Conc 32 gm/dL (32-36); Mean Corpuscular Hemoglobin 32 pg (26-34); Mean Corpuscular Volume 98 fL (80-100); Neutrophils Percent Auto 80.3 % (42.0-72.0); Platelet Count* 126 K/uL (140-440); RDW Coefficient of Variation % 15.8 % (11.5-15.5); Red Blood Count 3.57 m/uL (4.30-5.90); White Blood Count* 11.94 K/uL (4.50-11.00)
[2022-05-12 08:49] LABS: Slide Review Reflex No
[2022-05-12 08:58] LABS: Albumin* 3.9 g/dL (3.3-5.0); Chloride* 105 mmol/L (96-114); Potassium* 4.1 mmol/L (3.6-5.1); Sodium* 136 mmol/L (135-149)
[2022-05-12 09:00] LABS: Bilirubin Total* 0.3 mg/dL (0.1-1.5); Carbon Dioxide* 20 mmol/L (20-32); Creatinine* 0.7 mg/dL (0.5-1.5); Estimated Glomerular Filt Rate 93 ml/min
[2022-05-12 09:01] LABS: Alanine Aminotransferase* 32 U/L (4-50); Alkaline Phosphatase* 523 U/L (40-150); Aspartate Amino Transferase* 33 U/L (12-35); Blood Urea Nitrogen* 22 mg/dL (7-30); Calcium* 8.7 mg/dL (8.4-10.6); Glucose* 285 mg/dL (60-115); Total Protein* 6.9 g/dL (6.0-8.3)
[2022-05-12] MEDS: PALONOSETRON 0.25 MG/5 ML inj IV (10:18)
[2022-05-12] MEDS: dexAMETHasone 10 MG in 0.9 % SODIUM CHLORIDE 100 ml 100 ML 404 MG IVPB (10:19)
[2022-05-12] MEDS: 0.9 % SODIUM CHLORIDE 250 ml IV (10:44)
[2022-05-12] MEDS: FOSAPREPITANT 150 MG inj 150 MG in 0.9 % SODIUM CHLORIDE 250 ml 250 ML 510 MG IVPB (10:44)
--- NOTE | 2022-05-13 09:47 | NUTR.NU ---
Nutrition Follow-up: RDN continues to monitor patient. Spoke to patient via phone, is taking Imodium for diarrhea - he reports he is taking 2 of these in the morning which he feels is working well. His weight has decreased to 133 lbs (05/12/22), however per MD report patient's edema has gone down which can contribute to weight loss. Weight (04/14/22) 141.8 lbs; weight (03/17/22) 140.8 lbs; weight (02/03/22) 139.7 lbs; weight (01/06/22) 142.5 lbs. Patient reported improved appetite recently with good intakes. RDN will continue to monitor and follow-up prn.
[2022-05-14 11:39] VITALS: BP 107/59; PULSE 57; RESP 16; TEMP 36.4; O2SAT 100
[2022-05-14] MEDS: PEGFILGRASTIM 6 MG/0.6 ML SYRINGE SUBCUT (11:44)
[2022-05-14] MEDS: SODIUM CHLORIDE 0.9 % (FLUSH) 10 ML SYRINGE IVF (11:45)
[2022-05-14] MEDS: HEPARIN 500 UNIT/5 ML SYRINGE IVF (11:46)
[2022-05-26 09:11] VITALS: BP 129/59; PULSE 64; RESP 16; TEMP 36.2; O2SAT 99
[2022-05-26 09:31] LABS: Basophils Percent Auto 0.4 % (0.0-3.0); Eosinophils Percent Auto 1.9 % (0.0-7.0); Hematocrit 33.3 % (37.0-53.0); Immature Granulocytes Abs Auto 0.19 K/uL (0.00-0.30); Lymphocytes Percent Auto 9.2 % (20-44); Mean Corpuscular HGB Conc 33 gm/dL (32-36); Mean Corpuscular Hemoglobin 32 pg (26-34); Mean Corpuscular Volume 98 fL (80-100); Monocytes Percent Auto 6.3 % (0.0-11.0); Neutrophils Percent Auto 80.8 % (42.0-72.0); Platelet Count* 136 K/uL (140-440); White Blood Count* 13.96 K/uL (4.50-11.00)
[2022-05-26 09:41] LABS: Slide Review Reflex No
[2022-05-26 09:49] LABS: Chloride* 103 mmol/L (96-114)
[2022-05-26 09:50] LABS: Albumin* 3.7 g/dL (3.3-5.0); Potassium* 4.1 mmol/L (3.6-5.1); Sodium* 135 mmol/L (135-149)
[2022-05-26 09:53] LABS: Alanine Aminotransferase* 32 U/L (4-50); Alkaline Phosphatase* 519 U/L (40-150); Aspartate Amino Transferase* 37 U/L (12-35); Bilirubin Total* 0.3 mg/dL (0.1-1.5); Blood Urea Nitrogen* 22 mg/dL (7-30); Calcium* 8.7 mg/dL (8.4-10.6); Carbon Dioxide* 21 mmol/L (20-32); Creatinine* 0.9 mg/dL (0.5-1.5); Estimated Glomerular Filt Rate 86 ml/min; Glucose* 218 mg/dL (60-115); Total Protein* 6.6 g/dL (6.0-8.3)
[2022-05-26] MEDS: dexAMETHasone 10 MG in 0.9 % SODIUM CHLORIDE 100 ml 100 ML 404 MG IVPB (10:21)
[2022-05-26] MEDS: PALONOSETRON 0.25 MG/5 ML inj IV (10:21)
[2022-05-26] MEDS: FOSAPREPITANT 150 MG inj 150 MG in 0.9 % SODIUM CHLORIDE 250 ml 250 ML 510 MG IVPB (10:42)
--- NOTE | 2022-05-26 10:51 | ONC.NURNOTE ---
no increase in neuropathy discomfort. no reddness or drying or crack of skin. takes 2 Imodium every am for diarrhea with relief. states mouth discomfort of mucosa inside mouth in front of lower teeth. very tiny kankor sores no open area noted. using soda/ salt in water rinse and spit. Liudmila Mansfield APRN aware and ordered magic mouthwash for discomfort . wbc up a bit at 13.96 from 11.94. Alk Phos 519 as trending. ok to treat per Liudmila MAYORGA. Will show Dr. Ramos for advice in giving Neulasta and upper limit guideline for wbc in treatment plan. pt is asymptomatic for any infection.
[2022-05-26] MEDS: SODIUM CHLORIDE 0.9 % (FLUSH) 10 ML SYRINGE IVF (16:25)
[2022-05-26] MEDS: 0.9 % SODIUM CHLORIDE 250 ml IV (16:25)
[2022-05-26] MEDS: HEPARIN 500 UNIT/5 ML SYRINGE IVF (16:25)
[2022-05-26] MEDS: 5 % DEXTROSE 250 ML IV (16:25)
[2022-05-28 14:00] VITALS: BP 118/57; PULSE 67; RESP 16; TEMP 36.1; O2SAT 97
[2022-05-28] MEDS: PEGFILGRASTIM 6 MG/0.6 ML SYRINGE SUBCUT (14:29)
[2022-05-28] MEDS: SODIUM CHLORIDE 0.9 % (FLUSH) 10 ML SYRINGE IVF (14:30)
[2022-05-28] MEDS: HEPARIN 500 UNIT/5 ML SYRINGE IVF (14:30)
--- NOTE | 2022-05-28 16:05 | ONC.NURNOTE ---
states more fatigued today. states limited po today due to scan later. states good appetite. lookig forward to turner meal after scan. usually takes 2 imodium every am with relief. today took a third one with good relief. denies nausea. denies pain. states back spasms start 10 days after each chemo tx untill next treatment. since start of treatment. note pt gets dex. with each treatment. states magic mouth wash with good relief. mouth irritation almost gone per pt.
[2022-06-16 08:37] VITALS: BP 113/68; PULSE 69; RESP 16; TEMP 36.7; O2SAT 99
[2022-06-16 08:50] LABS: Basophils Absolute Auto 0.05 K/uL (0.00-0.30); Basophils Percent Auto 0.5 % (0.0-3.0); Eosinophils Absolute Auto 0.23 K/uL (0.00-0.50); Eosinophils Percent Auto 2.5 % (0.0-7.0); Hematocrit 33.7 % (37.0-53.0); Immature Granulocytes Abs Auto 0.03 K/uL (0.00-0.30); Lymphocytes Percent Auto 11.7 % (20-44); Mean Corpuscular HGB Conc 33 gm/dL (32-36); Mean Corpuscular Hemoglobin 32 pg (26-34); Mean Corpuscular Volume 99 fL (80-100); Monocytes Percent Auto 6.5 % (0.0-11.0); Neutrophils Percent Auto 78.5 % (42.0-72.0); Platelet Count* 149 K/uL (140-440); RDW Coefficient of Variation % 15.9 % (11.5-15.5); White Blood Count* 9.24 K/uL (4.50-11.00)
[2022-06-16 08:54] LABS: Slide Review Reflex No
[2022-06-16 09:10] LABS: Albumin* 3.9 g/dL (3.3-5.0); Chloride* 103 mmol/L (96-114); Potassium* 4.3 mmol/L (3.6-5.1); Sodium* 133 mmol/L (135-149)
[2022-06-16 09:12] LABS: Creatinine* 0.7 mg/dL (0.5-1.5); Estimated Glomerular Filt Rate 93 ml/min
[2022-06-16 09:13] LABS: Alanine Aminotransferase* 47 U/L (4-50); Alkaline Phosphatase* 549 U/L (40-150); Aspartate Amino Transferase* 37 U/L (12-35); Bilirubin Total* 0.4 mg/dL (0.1-1.5); Blood Urea Nitrogen* 26 mg/dL (7-30); Carbon Dioxide* 20 mmol/L (20-32); Glucose* 338 mg/dL (60-115); Total Protein* 6.8 g/dL (6.0-8.3)
[2022-06-16] MEDS: dexAMETHasone 10 MG in 0.9 % SODIUM CHLORIDE 100 ml 100 ML 404 MG IVPB (10:18)
[2022-06-16] MEDS: PALONOSETRON 0.25 MG/5 ML inj IV (10:18)
[2022-06-16] MEDS: 5 % DEXTROSE 250 ML IV (10:18)
[2022-06-16] MEDS: SODIUM CHLORIDE 0.9 % (FLUSH) 10 ML SYRINGE IVF (10:18)
[2022-06-16] MEDS: FOSAPREPITANT 150 MG inj 150 MG in 0.9 % SODIUM CHLORIDE 250 ml 250 ML 510 MG IVPB (10:47)
[2022-06-18 11:54] VITALS: BP 101/59; PULSE 65; RESP 16; TEMP 36.3; O2SAT 99
[2022-06-18] MEDS: PEGFILGRASTIM 6 MG/0.6 ML SYRINGE SUBCUT (12:09)
[2022-06-18] MEDS: SODIUM CHLORIDE 0.9 % (FLUSH) 10 ML SYRINGE IVF (13:21)
[2022-06-18] MEDS: HEPARIN 500 UNIT/5 ML SYRINGE IVF (13:21)
--- NOTE | 2022-06-18 13:56 | ONC.NURNOTE ---
patient and concerned about elevated Cancer level. note pt did skip a treatment for travel. pt states he is feeling well. and looks well. states trip went well and he felt stronger as the days progressed on vacation. pt and would like a recheck at [facility] visit. message left on chart.
[2022-06-30 08:27] LABS: Basophils Percent Auto 0.4 % (0.0-3.0); Eosinophils Percent Auto 2.9 % (0.0-7.0); Hematocrit 34.3 % (37.0-53.0); Hemoglobin* 11.2 gm/dL (13.5-17.5); Immature Granulocytes Pct Auto 0.5 %; Lymphocytes Percent Auto 11.3 % (20-44); Mean Corpuscular HGB Conc 33 gm/dL (32-36); Mean Corpuscular Hemoglobin 33 pg (26-34); Mean Corpuscular Volume 99 fL (80-100); Neutrophils Percent Auto 78.9 % (42.0-72.0); Platelet Count* 132 K/uL (140-440); RDW Coefficient of Variation % 15.7 % (11.5-15.5); Red Blood Count 3.45 m/uL (4.30-5.90); White Blood Count* 11.31 K/uL (4.50-11.00)
[2022-06-30 08:33] LABS: Slide Review Reflex No
[2022-06-30 08:42] VITALS: BP 120/66; PULSE 69; RESP 16; TEMP 36.1; O2SAT 99
[2022-06-30 08:48] LABS: Albumin* 4.2 g/dL (3.3-5.0); Chloride* 104 mmol/L (96-114); Potassium* 4.3 mmol/L (3.6-5.1); Sodium* 136 mmol/L (135-149)
[2022-06-30 08:50] LABS: Bilirubin Total* 0.3 mg/dL (0.1-1.5); Creatinine* 0.7 mg/dL (0.5-1.5); Est. Creatinine Clearance* 48.51; Estimated Glomerular Filt Rate 93 ml/min
[2022-06-30 08:51] LABS: Alanine Aminotransferase* 50 U/L (4-50); Alkaline Phosphatase* 538 U/L (40-150); Aspartate Amino Transferase* 51 U/L (12-35); Blood Urea Nitrogen* 25 mg/dL (7-30); Calcium* 8.7 mg/dL (8.4-10.6); Carbon Dioxide* 21 mmol/L (20-32); Glucose* 210 mg/dL (60-115); Total Protein* 7.3 g/dL (6.0-8.3)
[2022-06-30] MEDS: 0.9 % SODIUM CHLORIDE 250 ml IV (09:22)
[2022-06-30] MEDS: PALONOSETRON 0.25 MG/5 ML inj IV (09:22)
[2022-06-30] MEDS: SODIUM CHLORIDE 0.9 % (FLUSH) 10 ML SYRINGE IVF (09:22)
[2022-06-30] MEDS: dexAMETHasone 10 MG in 0.9 % SODIUM CHLORIDE 100 ml 100 ML 404 MG IVPB (09:23)
[2022-06-30] MEDS: FOSAPREPITANT 150 MG inj 150 MG in 0.9 % SODIUM CHLORIDE 250 ml 250 ML 510 MG IVPB (09:48)
[2022-06-30] MEDS: 5 % DEXTROSE 250 ML IV (10:38)
[2022-07-02 12:00] VITALS: BP 97/53; PULSE 56; RESP 18; TEMP 36.4; O2SAT 97
[2022-07-02] MEDS: PEGFILGRASTIM 6 MG/0.6 ML SYRINGE SUBCUT (12:20)
[2022-07-02] MEDS: SODIUM CHLORIDE 0.9 % (FLUSH) 10 ML SYRINGE IVF (12:22)
[2022-07-02] MEDS: HEPARIN 500 UNIT/5 ML SYRINGE IVF (12:22)
--- NOTE | 2022-07-02 13:04 | ONC.NURNOTE ---
Patient here for pump off and requested his tumor marker. This was verbalized to him and his . They question what this means as it has continued to increase. Patient had CT in [place] in May which is not readily available to me at present to determine coorelation, but instructed to have this conversation with Dr. Ramos when he is seen with next infusion. Patient denies pain, appetite, or abdominal changes.
[2022-07-14 08:15] LABS: Basophils Percent Auto 0.3 % (0.0-3.0); Eosinophils Percent Auto 1.9 % (0.0-7.0); Hematocrit 32.6 % (37.0-53.0); Hemoglobin* 10.6 gm/dL (13.5-17.5); Immature Granulocytes Pct Auto 1.6 %; Lymphocytes Percent Auto 8.3 % (20-44); Mean Corpuscular HGB Conc 33 gm/dL (32-36); Mean Corpuscular Hemoglobin 32 pg (26-34); Mean Corpuscular Volume 100 fL (80-100); Monocytes Percent Auto 6.4 % (0.0-11.0); Neutrophils Percent Auto 81.5 % (42.0-72.0); Platelet Count* 118 K/uL (140-440); RDW Coefficient of Variation % 15.5 % (11.5-15.5); Red Blood Count 3.27 m/uL (4.30-5.90)
[2022-07-14 08:19] LABS: Slide Review Reflex No
[2022-07-14 08:28] LABS: Albumin* 3.9 g/dL (3.3-5.0); Chloride* 105 mmol/L (96-114); Potassium* 3.9 mmol/L (3.6-5.1); Sodium* 136 mmol/L (135-149)
[2022-07-14 08:30] LABS: Bilirubin Total* 0.4 mg/dL (0.1-1.5); Carbon Dioxide* 20 mmol/L (20-32); Creatinine* 0.7 mg/dL (0.5-1.5); Est. Creatinine Clearance* 48.51; Estimated Glomerular Filt Rate 93 ml/min
[2022-07-14 08:31] LABS: Alanine Aminotransferase* 39 U/L (4-50); Alkaline Phosphatase* 502 U/L (40-150); Aspartate Amino Transferase* 38 U/L (12-35); Blood Urea Nitrogen* 24 mg/dL (7-30); Calcium* 8.8 mg/dL (8.4-10.6); Glucose* 301 mg/dL (60-115); Total Protein* 6.8 g/dL (6.0-8.3)
[2022-07-14] MEDS: PALONOSETRON 0.25 MG/5 ML inj IV (09:51)
[2022-07-14] MEDS: dexAMETHasone 10 MG in 0.9 % SODIUM CHLORIDE 100 ml 100 ML 404 MG IVPB (09:52)
[2022-07-14] MEDS: FOSAPREPITANT 150 MG inj 150 MG in 0.9 % SODIUM CHLORIDE 250 ml 250 ML 510 MG IVPB (10:18)
[2022-07-14] MEDS: 5 % DEXTROSE 250 ML IV (10:53)
[2022-07-14] MEDS: SODIUM CHLORIDE 0.9 % (FLUSH) 10 ML SYRINGE IVF (10:54)
[2022-07-16 10:35] VITALS: BP 92/48; PULSE 62; RESP 16; TEMP 36.2; O2SAT 98
[2022-07-16] MEDS: PEGFILGRASTIM 6 MG/0.6 ML SYRINGE SUBCUT (10:45)
[2022-07-16] MEDS: SODIUM CHLORIDE 0.9 % (FLUSH) 10 ML SYRINGE IVF (10:46)
[2022-07-16] MEDS: HEPARIN 500 UNIT/5 ML SYRINGE IVF (10:46)
[2022-07-28 08:36] VITALS: BP 151/58; PULSE 81; RESP 16; TEMP 36.4; O2SAT 92
[2022-07-28 09:23] LABS: Basophils Percent Auto 0.3 % (0.0-3.0); Eosinophils Percent Auto 2.1 % (0.0-7.0); Hematocrit 32.7 % (37.0-53.0); Hemoglobin* 10.6 gm/dL (13.5-17.5); Immature Granulocytes Pct Auto 1.4 %; Mean Corpuscular HGB Conc 32 gm/dL (32-36); Mean Corpuscular Hemoglobin 32 pg (26-34); Mean Corpuscular Volume 99 fL (80-100); Monocytes Percent Auto 6.7 % (0.0-11.0); Neutrophils Percent Auto 81.5 % (42.0-72.0); Platelet Count* 158 K/uL (140-440); RDW Coefficient of Variation % 15.1 % (11.5-15.5); Red Blood Count 3.29 m/uL (4.30-5.90)
[2022-07-28 09:33] LABS: Slide Review Reflex No
[2022-07-28 09:40] LABS: Albumin* 3.9 g/dL (3.3-5.0); Chloride* 105 mmol/L (96-114); Sodium* 138 mmol/L (135-149)
[2022-07-28 09:43] LABS: Alanine Aminotransferase* 32 U/L (4-50); Alkaline Phosphatase* 613 U/L (40-150); Aspartate Amino Transferase* 37 U/L (12-35); Bilirubin Total* 0.5 mg/dL (0.1-1.5); Blood Urea Nitrogen* 21 mg/dL (7-30); Carbon Dioxide* 26 mmol/L (20-32); Creatinine* 0.7 mg/dL (0.5-1.5); Est. Creatinine Clearance* 48.51; Estimated Glomerular Filt Rate 93 ml/min; Glucose* 198 mg/dL (60-115)
[2022-07-28 09:44] LABS: Calcium* 8.8 mg/dL (8.4-10.6)
[2022-07-28] MEDS: 0.9 % SODIUM CHLORIDE 250 ml IV (10:36)
[2022-07-28] MEDS: FOSAPREPITANT 150 MG inj 150 MG in 0.9 % SODIUM CHLORIDE 250 ml 250 ML 510 MG IVPB (10:37)
[2022-07-28] MEDS: SODIUM CHLORIDE 0.9 % (FLUSH) 10 ML SYRINGE IVF (10:37)
[2022-07-28] MEDS: PALONOSETRON 0.25 MG/5 ML inj IV (10:37)
[2022-07-28] MEDS: dexAMETHasone 10 MG in 0.9 % SODIUM CHLORIDE 100 ml 100 ML 404 MG IVPB (11:10)
--- NOTE | 2022-07-28 13:40 | ONC.NURNOTE ---
Patient here for FOLFIRI today and notes that he did not have any good days this past cycle. Notes on the Thursday of pump off, that had dizziness and vomitting of bile for a couple hours. He was exhausted and tired and slept most of the day on . He denies any dizziness today, but states that his appetite and energy has not yet returned. Patient appears to be tired and notes that his color is off as well. Discussed patient with PRESS MACHINE OPERATOR and doses were decreased for this cycle. Patient has PET scan on and follow up with Dr. Ramos to go through results and come up with next plan.
[2022-07-30 11:57] VITALS: BP 131/58; PULSE 81; RESP 16; TEMP 36.2; O2SAT 93
[2022-07-30] MEDS: 0.9 % SODIUM CHLORIDE 1000 ml 1,000 ML IV (12:10)
[2022-07-30] MEDS: PEGFILGRASTIM 6 MG/0.6 ML SYRINGE SUBCUT (12:35)
[2022-08-11 08:13] LABS: Basophils Percent Auto 0.4 % (0.0-3.0); Eosinophils Percent Auto 2.8 % (0.0-7.0); Hematocrit 33.2 % (37.0-53.0); Hemoglobin* 10.5 gm/dL (13.5-17.5); Immature Granulocytes Pct Auto 1.2 %; Lymphocytes Percent Auto 10.1 % (20-44); Mean Corpuscular HGB Conc 32 gm/dL (32-36); Mean Corpuscular Hemoglobin 32 pg (26-34); Mean Corpuscular Volume 100 fL (80-100); Monocytes Percent Auto 6.7 % (0.0-11.0); Neutrophils Percent Auto 78.8 % (42.0-72.0); Platelet Count* 142 K/uL (140-440); RDW Coefficient of Variation % 14.7 % (11.5-15.5); Red Blood Count 3.32 m/uL (4.30-5.90); White Blood Count* 15.62 K/uL (4.50-11.00)
[2022-08-11 08:16] LABS: Slide Review Reflex No
[2022-08-11 08:23] LABS: Chloride* 105 mmol/L (96-114); Potassium* 4.3 mmol/L (3.6-5.1); Sodium* 137 mmol/L (135-149)
[2022-08-11 08:25] LABS: Creatinine* 0.7 mg/dL (0.5-1.5); Est. Creatinine Clearance* 48.51; Estimated Glomerular Filt Rate 93 ml/min
[2022-08-11 08:26] LABS: Alanine Aminotransferase* 31 U/L (4-50); Alkaline Phosphatase* 546 U/L (40-150); Aspartate Amino Transferase* 39 U/L (12-35); Bilirubin Total* 0.5 mg/dL (0.1-1.5); Blood Urea Nitrogen* 22 mg/dL (7-30); Calcium* 8.7 mg/dL (8.4-10.6); Carbon Dioxide* 23 mmol/L (20-32); Glucose* 214 mg/dL (60-115); Total Protein* 7.1 g/dL (6.0-8.3)
[2022-08-11] MEDS: SODIUM CHLORIDE 0.9 % (FLUSH) 10 ML SYRINGE IVF (09:03)
[2022-08-11] MEDS: HEPARIN 500 UNIT/5 ML SYRINGE IVF (09:03)
--- NOTE | 2022-08-11 09:42 | ONC.NURNOTE ---
Patient and patients requested that we draw a CA-[address] Ramos, we will wait until after the holidays to draw this. Left message for patient on his phone with this information.
--- NOTE | 2022-08-22 13:42 | URNOTE ---
Request received for Granisetron (J1626), Gemcitabine (Gemzar) (J9201) per [facility] Drug Authorization List-do not require a prior authorization. Prior Authorization was approved for Abraxane (J9264) Ref#[id number] starting 08/26/2022 to 08/24/2023 number of services 26.813 [facility] Units.
[2022-08-26 08:30] VITALS: BP 125/53; PULSE 67; RESP 16; TEMP 36.3; O2SAT 99
[2022-08-26 08:48] LABS: Basophils Percent Auto 0.2 % (0.0-3.0); Hematocrit 31.3 % (37.0-53.0); Hemoglobin* 10.2 gm/dL (13.5-17.5); Immature Granulocytes Pct Auto 0.3 %; Lymphocytes Percent Auto 9.6 % (20-44); Mean Corpuscular HGB Conc 33 gm/dL (32-36); Mean Corpuscular Hemoglobin 32 pg (26-34); Mean Corpuscular Volume 98 fL (80-100); Monocytes Percent Auto 7.4 % (0.0-11.0); Neutrophils Percent Auto 80.5 % (42.0-72.0); Platelet Count* 215 K/uL (140-440); RDW Coefficient of Variation % 14.3 % (11.5-15.5)
[2022-08-26 08:53] LABS: Slide Review Reflex No
[2022-08-26 09:04] LABS: Albumin* 3.7 g/dL (3.3-5.0); Chloride* 109 mmol/L (96-114); Potassium* 4.3 mmol/L (3.6-5.1); Sodium* 135 mmol/L (135-149)
[2022-08-26 09:07] LABS: Alanine Aminotransferase* 27 U/L (4-50); Alkaline Phosphatase* 433 U/L (40-150); Aspartate Amino Transferase* 24 U/L (12-35); Bilirubin Total* 0.6 mg/dL (0.1-1.5); Blood Urea Nitrogen* 36 mg/dL (7-30); Calcium* 8.9 mg/dL (8.4-10.6); Carbon Dioxide* 16 mmol/L (20-32); Creatinine* 0.8 mg/dL (0.5-1.5); Est. Creatinine Clearance* 48.51; Estimated Glomerular Filt Rate 89 ml/min; Glucose* 212 mg/dL (60-115); Total Protein* 6.8 g/dL (6.0-8.3)
[2022-08-26] MEDS: 0.9 % SODIUM CHLORIDE 250 ml IV (10:09)
[2022-08-26] MEDS: GRANISETRON 1 MG/ML inj IVP (10:09)
[2022-08-26] MEDS: dexAMETHasone 10 MG in 0.9 % SODIUM CHLORIDE 100 ml 100 ML 404 MG IVPB (10:09)
[2022-08-26] MEDS: SODIUM CHLORIDE 0.9 % (FLUSH) 10 ML SYRINGE IVF (11:53)
[2022-08-26] MEDS: HEPARIN 500 UNIT/5 ML SYRINGE IVF (11:54)
--- NOTE | 2022-08-26 15:25 | ONC.NURNOTE ---
0857 Just got home from [place] 08/24/22. States on 08/21 was experiencing madison. hip pain. radiating to Lt. knee. PT. states diagnosed with Gout. no fever. Lt knee drained. placed on steroids. 08/23 states bs 700 due to steroids. Was seen at the [facility] ER, received 5 Units reg insulin and 2L fluid. stopped steroids. Liudmila Mansfield APRN aware. Today states Lt knee slight pain of 2. On exam, Lt knee dry and intact. no swelling, redness or drainage. no fever. BS this am 124. Labs wnl. Ok to treat to day with first dose of Gemzar if no s/s infection. Per Liudmila Mansfield APRN. Pt jena well. enc pt to take compazine tonight and with meals tomorrow. then prn. pt will not be taking claritin. education info given to pt and on Gemzar and Kyril. concent signed prior to giving. Pt. to follow up with primary md at the [place] re gout of Lt. knee. Unsure if Chemo related. Uric acid drawn today and will call results to pts.
[2022-08-26 15:48] LABS: Uric Acid* 5.4 mg/dL (2.2-8.4)
--- NOTE | 2022-08-27 13:47 | ONC.NURNOTE ---
Cloth Drier called patient to see how he was doing after his first Gemzar and patient stated he had a headache and did take his temperature and it was 98 and usually he said he is 96. He stated he took one advil (prescription strength- 600mg) and laid down and then it went away. in the background also wanted patient to mention his left foot. Apparently it was restless and swollen so he got up for awhile and that helped. and patient mentioned that he had gout in his left knee when he was on vacation and believe they did an ultrasound then. Nurse stated he didn't have any swelling of left leg yesterday but states there is swelling in it today. Recommended that he does go to primary when he can (can't get out at present due to being snowed in) to get DVT ruled out.
[2022-09-02 08:14] VITALS: BP 111/57; PULSE 73; RESP 16; TEMP 36.4; O2SAT 99
[2022-09-02 08:24] LABS: Basophils Absolute Auto 0.02 K/uL (0.00-0.30); Basophils Percent Auto 0.4 % (0.0-3.0); Eosinophils Absolute Auto 0.14 K/uL (0.00-0.50); Eosinophils Percent Auto 2.5 % (0.0-7.0); Hematocrit 28.3 % (37.0-53.0); Hemoglobin* 9.3 gm/dL (13.5-17.5); Immature Granulocytes Abs Auto 0.04 K/uL (0.00-0.30); Immature Granulocytes Pct Auto 0.7 %; Lymphocytes Percent Auto 17.6 % (20-44); Mean Corpuscular HGB Conc 33 gm/dL (32-36); Mean Corpuscular Hemoglobin 32 pg (26-34); Mean Corpuscular Volume 96 fL (80-100); Monocytes Percent Auto 14.7 % (0.0-11.0); Neutrophils Absolute Auto 3.62 K/uL (1.7-7.0); Neutrophils Percent Auto 64.1 % (42.0-72.0); Platelet Count* 96 K/uL (140-440); RDW Coefficient of Variation % 14.5 % (11.5-15.5); Red Blood Count 2.94 m/uL (4.30-5.90); White Blood Count* 5.64 K/uL (4.50-11.00)
[2022-09-02 08:32] LABS: Slide Review Reflex No
[2022-09-02 08:56] LABS: Chloride* 105 mmol/L (96-114)
[2022-09-02 08:57] LABS: Albumin* 3.4 g/dL (3.3-5.0); Potassium* 4.1 mmol/L (3.6-5.1); Sodium* 133 mmol/L (135-149)
[2022-09-02 09:00] LABS: Alanine Aminotransferase* 22 U/L (4-50); Alkaline Phosphatase* 370 U/L (40-150); Aspartate Amino Transferase* 27 U/L (12-35); Bilirubin Total* 0.5 mg/dL (0.1-1.5); Blood Urea Nitrogen* 21 mg/dL (7-30); Carbon Dioxide* 24 mmol/L (20-32); Creatinine* 0.7 mg/dL (0.5-1.5); Est. Creatinine Clearance* 48.51; Estimated Glomerular Filt Rate 93 ml/min; Glucose* 230 mg/dL (60-115); Total Protein* 6.3 g/dL (6.0-8.3)
[2022-09-02 09:01] LABS: Calcium* 8.6 mg/dL (8.4-10.6)
[2022-09-02] MEDS: 0.9 % SODIUM CHLORIDE 250 ml IV (09:30)
[2022-09-02] MEDS: dexAMETHasone 10 MG in 0.9 % SODIUM CHLORIDE 100 ml 100 ML 404 MG IVPB (09:39)
[2022-09-02] MEDS: GRANISETRON 1 MG/ML inj IVP (09:39)
[2022-09-02] MEDS: SODIUM CHLORIDE 0.9 % (FLUSH) 10 ML SYRINGE IVF (10:58)
[2022-09-02] MEDS: HEPARIN 500 UNIT/5 ML SYRINGE IVF (10:58)
--- NOTE | 2022-09-03 09:46 | PC.NURSE ---
Called pt today to check in after chemo yesterday. He states he is feeling ok. No specific concerns today. RN updated pt that PT orders were placed for therapy for his neuropathy and balance issues and OT order was placed for his cognitive impairment. Kadeem understands and will anticipate the call from rehab to schedule. RN also let him know that we will discuss the Zometa administration with Dr. Ramos on Thursday and will follow-up with him. Kadeem agrees with this plan.
--- NOTE | 2022-09-08 16:10 | PC.NURSE ---
Reviewed pt's treatment plan with Dr. Ramos today and MD instructed RN to resume pt's Zometa infusions. Kadeem will be present at [facility] tomorrow for labs and chemo, he will have a dose of Zometa at that time. Called pt with this update. He agrees with this plan. Kadeem then shared that he got scheduled for PT/OT with [facility] and they can only do Thursday's. He wants to feel good for these appointments, so inquired about doing chemo on Wednesdays. RN advised that we discuss tomorrow when pt is present at [facility]. He agreed.
[2022-09-09 08:59] LABS: Basophils Percent Auto 0.3 % (0.0-3.0); Hematocrit 25.4 % (37.0-53.0); Hemoglobin* 8.5 gm/dL (13.5-17.5); Immature Granulocytes Pct Auto 0.5 %; Lymphocytes Percent Auto 26.1 % (20-44); Mean Corpuscular HGB Conc 34 gm/dL (32-36); Mean Corpuscular Hemoglobin 33 pg (26-34); Mean Corpuscular Volume 98 fL (80-100); Monocytes Percent Auto 14.2 % (0.0-11.0); Neutrophils Percent Auto 56.9 % (42.0-72.0); RDW Coefficient of Variation % 15.1 % (11.5-15.5); White Blood Count* 3.94 K/uL (4.50-11.00)
[2022-09-09 09:34] LABS: Platelet Count* 35 K/uL (140-440); Slide Review Reflex Yes
[2022-09-09 09:36] LABS: Slide Review Acceptable Review (Acceptable)
[2022-09-09 09:54] LABS: Albumin* 3.3 g/dL (3.3-5.0); Chloride* 108 mmol/L (96-114); Sodium* 137 mmol/L (135-149)
[2022-09-09 09:57] LABS: Alanine Aminotransferase* 23 U/L (4-50); Alkaline Phosphatase* 449 U/L (40-150); Aspartate Amino Transferase* 30 U/L (12-35); Bilirubin Total* 0.6 mg/dL (0.1-1.5); Blood Urea Nitrogen* 23 mg/dL (7-30); Carbon Dioxide* 22 mmol/L (20-32); Creatinine* 0.6 mg/dL (0.5-1.5); Est. Creatinine Clearance* 48.51; Estimated Glomerular Filt Rate 97 ml/min; Glucose* 189 mg/dL (60-115); Total Protein* 6.4 g/dL (6.0-8.3); Uric Acid* 3.9 mg/dL (2.2-8.4)
[2022-09-09 09:58] LABS: Calcium* 8.6 mg/dL (8.4-10.6)
[2022-09-09] MEDS: ZOLEDRONIC ACID 4 MG in 0.9 % SODIUM CHLORIDE 100 ml 100 ML 420 MG IVPB (10:12)
[2022-09-09] MEDS: 0.9 % SODIUM CHLORIDE 250 ml IV (10:12)
--- NOTE | 2022-09-09 10:30 | CRLHL7_ITS ---
For Patients: As a result of the Century Cures Act, medical imaging exams and procedure reports are released immediately into your electronic medical record. You may view this report before your referring provider. If you have questions, please contact your health care provider. INDICATION: R/O CHF TECHNIQUE: Chest 2 views COMPARISON: 12/09/2021 FINDINGS: Small bilateral pleural effusions. No thickening of the interlobular septa to suggest CHF. No pneumothorax. Indwelling catheter. Underlying COPD. Left upper lobe parenchymal densities. Tortuosity aorta. Cardiac silhouette is enlarged. IMPRESSION: Small bilateral pleural effusions. No CHF. Streaky densities in both upper lobes, left greater than right. Dictated by Sunny Lackey MD @ 09/09/2022 11:57:41 AM (Electronically Signed)
--- NOTE | 2022-09-09 11:09 | PC.NURSE ---
Upon assessment today prior to chemo infusion, Kadeem shared that he is not doing well. He is having dizzy spells, short of breath with minimal exertion, emotionally labile (cries a lot), crabby (per his ), and feels generally beat down. He reports that he cannot bounce back with this weekly chemo. Kadeem also shares that when he was getting the previous chemo regimen, he found his good days were less and less with the more chemo he got. Kadeem also experienced a sudden and significant swelling and pain of his LEFT thumb. He deduced that it was gout as it felt similar to his knee experiences on vacation. He used ice and today his thumb is still a little swollen but 100% better. Kadeem is wearing compression stockings and notes his LE swelling is better. Discussed all of the above with Liudmila Young APRN who then met with Kadeem to do a full visit and evaluation. After their visit it was determined that Kadeem could proceed with Zometa, which was given. CXR, EKG, Trop, and BNP ordered. Gemzar held today due to low platelets. Pt will have labs on Thursday of this week and is scheduled to make up this chemo dose next Thursday. Kadeem will see Chiquis RedmanPreston as scheduled on 09/22/2022. Also of note, pt starts PT/OT on 09/30/2022 and he is worried about scheduling of chemo with the timing of chemo and feeling well enough to participate in therapy. Will complete scheduling on the when we know next steps. Supportive listening provided.
[2022-09-09 11:24] LABS: Troponin I* 0.15 ng/mL (0.01-0.04)
[2022-09-09 11:25] LABS: NT Pro B Type NatriureticPept* 2850 pg/mL
[2022-09-12 08:48] LABS: Basophils Absolute Auto 0.02 K/uL (0.00-0.30); Basophils Percent Auto 0.4 % (0.0-3.0); Eosinophils Percent Auto 7.1 % (0.0-7.0); Hemoglobin* 10.5 gm/dL (13.5-17.5); Immature Granulocytes Abs Auto 0.04 K/uL (0.00-0.30); Immature Granulocytes Pct Auto 0.8 %; Lymphocytes Absolute Auto 1.12 K/uL (0.90-2.90); Lymphocytes Percent Auto 21.5 % (20-44); Mean Corpuscular HGB Conc 33 gm/dL (32-36); Mean Corpuscular Hemoglobin 32 pg (26-34); Mean Corpuscular Volume 97 fL (80-100); Monocytes Percent Auto 15.5 % (0.0-11.0); Neutrophils Absolute Auto 2.86 K/uL (1.7-7.0); Neutrophils Percent Auto 54.7 % (42.0-72.0); Platelet Count* 98 K/uL (140-440); Red Blood Count 3.29 m/uL (4.30-5.90); White Blood Count* 5.22 K/uL (4.50-11.00)
[2022-09-12 09:41] LABS: Slide Review Reflex No
--- NOTE | 2022-09-12 11:48 | ONC.NURNOTE ---
Lab results called to patient and also to Liudmila Mansfield APRN. Liudmila is going to talk to Dr. Ramos thursday about pt having chemo thursday. I also called [place] [employer]. I talked to Dr. John unit secretary. I faxed Nilda note from today and Dr. Rey ER visit summary. I faxed todays labs and the ER labs and 2 EKGS. I wrote a note on the first fax page that will go to Dr. John nurse There, that Kadeem needs to see a resident intern [facility]. I am waiting for Radha to call me back. In the meantime Liudmila make a cardiology referal. The first avail apt is October 24 , 3pm at the [facility] [address] in [place]. [id number]. I made a apt in case. Dr. John office [phone]. fax [phone]. Patient and Liudmila updated with this imformation. I told Kadeem that I would call him at home once I hear from Radha/ Dr. John nurse. hopefully today.
--- NOTE | 2022-09-12 15:22 | ONC.NURNOTE ---
Per Liudmila Mansfield APRN. I instructed Kadeem to take his regular dose of xeralto.
[2022-09-16 08:05] VITALS: BP 116/59; PULSE 74; RESP 16; TEMP 36.4; O2SAT 98
[2022-09-16 08:45] LABS: Basophils Absolute Auto 0.01 K/uL (0.00-0.30); Basophils Percent Auto 0.2 % (0.0-3.0); Eosinophils Percent Auto 5.6 % (0.0-7.0); Hematocrit 30.1 % (37.0-53.0); Hemoglobin* 9.8 gm/dL (13.5-17.5); Immature Granulocytes Abs Auto 0.05 K/uL (0.00-0.30); Immature Granulocytes Pct Auto 0.9 %; Lymphocytes Absolute Auto 1.18 K/uL (0.90-2.90); Lymphocytes Percent Auto 21.9 % (20-44); Mean Corpuscular HGB Conc 33 gm/dL (32-36); Mean Corpuscular Hemoglobin 32 pg (26-34); Mean Corpuscular Volume 97 fL (80-100); Monocytes Percent Auto 16.7 % (0.0-11.0); Neutrophils Absolute Auto 2.94 K/uL (1.7-7.0); Neutrophils Percent Auto 54.7 % (42.0-72.0); Platelet Count* 226 K/uL (140-440); Red Blood Count 3.09 m/uL (4.30-5.90); White Blood Count* 5.38 K/uL (4.50-11.00)
[2022-09-16 08:48] LABS: Slide Review Reflex No
[2022-09-16 09:02] LABS: Albumin* 3.4 g/dL (3.3-5.0); Chloride* 109 mmol/L (96-114); Sodium* 137 mmol/L (135-149)
[2022-09-16 09:03] LABS: Potassium* 4.1 mmol/L (3.6-5.1)
[2022-09-16 09:05] LABS: Alanine Aminotransferase* 25 U/L (4-50); Alkaline Phosphatase* 456 U/L (40-150); Aspartate Amino Transferase* 31 U/L (12-35); Bilirubin Total* 0.6 mg/dL (0.1-1.5); Blood Urea Nitrogen* 21 mg/dL (7-30); Carbon Dioxide* 23 mmol/L (20-32); Creatinine* 0.7 mg/dL (0.5-1.5); Est. Creatinine Clearance* 48.51; Estimated Glomerular Filt Rate 93 ml/min; Glucose* 141 mg/dL (60-115); Total Protein* 6.4 g/dL (6.0-8.3)
[2022-09-16 09:06] LABS: Calcium* 8.2 mg/dL (8.4-10.6)
[2022-09-16] MEDS: dexAMETHasone 10 MG in 0.9 % SODIUM CHLORIDE 100 ml 100 ML 404 MG IVPB (09:31)
[2022-09-16] MEDS: 0.9 % SODIUM CHLORIDE 250 ml IV (09:31)
[2022-09-16] MEDS: SODIUM CHLORIDE 0.9 % (FLUSH) 10 ML SYRINGE IVF (09:32)
[2022-09-16] MEDS: GRANISETRON 1 MG/ML inj IVP (09:55)
--- NOTE | 2022-09-16 12:03 | ONC.NURNOTE ---
Pt treated for C2D1 Gemzar today; labs WNL. Per note from Edna Orozco, RN 09/15, Rocky, nurse with Dr. Giles's office, returned call saying they are reviewing faxed information. Pt to try Voltaren cream for left hand presumed gout and f/u with PCP Dr. Giles for ongoing mgt. Cardiology appt sched 10/24/22 at [facility]; [facility] can see [facility] sooner. RTC for Q2wk Gemzar at 66% dosing; f/u with Dr. Ramos Mon 10/13 prior to C3D1 Tues 09/13. Appts reviewed with pt.
== END 2022-09-27 23:59 | disposition home or self-care (01) ==
LOC: CCIC 08:00
PROVIDERS: Internal Medicine Medical Oncology; Nurse Practitioner Family; Visit Provider Clinical Nurse Specialist
DX: Z51.11 Encounter for antineoplastic chemotherapy (principal); C25.9 Malignant neoplasm of pancreas, unspecified; C79.51 Secondary malignant neoplasm of bone
CPT/HCPCS: 36415; 36591; 71046; 80053; 83735; 83880; 84484; 84550; 85025; 86301; 96360; 96368; 96372; 96374; 96376; 96413; 96415; 96416; 96417; 99211; 99212; 99214; 99215; J2506; J0461; J0640; J1100; J1453; J1626; J1642; J2469; J3489; J7030; J7050; J7120; J9190; J9201; J9206; J9263

== ENCOUNTER 2022-10-01 08:17 | Outpatient (RCR) | payer MEDICARE, SELFPAY ==
[2022-10-01 08:27] VITALS: BP 120/62; PULSE 89; RESP 22; TEMP 36.4; O2SAT 98
[2022-10-01 08:47] LABS: Basophils Absolute Auto 0.02 K/uL (0.00-0.30); Basophils Percent Auto 0.3 % (0.0-3.0); Eosinophils Absolute Auto 0.16 K/uL (0.00-0.50); Eosinophils Percent Auto 2.1 % (0.0-7.0); Hematocrit 29.1 % (37.0-53.0); Hemoglobin* 9.6 gm/dL (13.5-17.5); Immature Granulocytes Abs Auto 0.04 K/uL (0.00-0.30); Immature Granulocytes Pct Auto 0.5 %; Lymphocytes Percent Auto 18.9 % (20-44); Mean Corpuscular HGB Conc 33 gm/dL (32-36); Mean Corpuscular Hemoglobin 33 pg (26-34); Mean Corpuscular Volume 99 fL (80-100); Monocytes Percent Auto 12.4 % (0.0-11.0); Neutrophils Absolute Auto 4.94 K/uL (1.7-7.0); Neutrophils Percent Auto 65.8 % (42.0-72.0); Platelet Count* 124 K/uL (140-440); RDW Coefficient of Variation % 17.6 % (11.5-15.5); Red Blood Count 2.93 m/uL (4.30-5.90); White Blood Count* 7.51 K/uL (4.50-11.00)
[2022-10-01 08:57] LABS: Albumin* 3.4 g/dL (3.3-5.0); Chloride* 106 mmol/L (96-114); Slide Review Reflex No; Sodium* 136 mmol/L (135-149)
[2022-10-01 09:00] LABS: Alanine Aminotransferase* 21 U/L (4-50); Alkaline Phosphatase* 470 U/L (40-150); Aspartate Amino Transferase* 31 U/L (12-35); Bilirubin Total* 0.6 mg/dL (0.1-1.5); Blood Urea Nitrogen* 26 mg/dL (7-30); Calcium* 8.1 mg/dL (8.4-10.6); Carbon Dioxide* 21 mmol/L (20-32); Creatinine* 0.8 mg/dL (0.5-1.5); Estimated Glomerular Filt Rate 89 ml/min; Glucose* 192 mg/dL (60-115); Total Protein* 6.4 g/dL (6.0-8.3)
[2022-10-01] MEDS: GRANISETRON 1 MG/ML inj IVP (10:01)
[2022-10-01] MEDS: dexAMETHasone 10 MG in 0.9 % SODIUM CHLORIDE 100 ml 100 ML 404 MG IVPB (10:01)
[2022-10-01 11:29] LABS: Magnesium* 2.1 mg/dL (1.5-2.6)
[2022-10-01 11:41] LABS: Ionized Calcium* 1.06 mmol/L (1.11-1.30)
--- NOTE | 2022-10-01 12:43 | ONC.NURNOTE ---
alert and oriented. states tired today. states yesturday he had a Liter of fluid taken off around his lt lung. states before the removal felt very uncomfortable and SOb. today denies SOB. states slight thoracic back discomfort. LS clear. Heart reg s1s2 soft murmer. states abd slightly distended. poss bs all 4 quad. hypoactive. abd soft. no quarding when palpated. states passing flatus and had a bm this am. enc him to let md know if increase distention, no flatus N/V. [place] LE 1 + edema. rach bottom of both feet. and around outer edge of toes. no open areas. skin on shins tight. no reddness or drainage of legs. Discussed treatment with Liudmila Arellano APRN before todays treatment. faxed and [facility] called [facility] and stated will sent us the fluid results when avail in 2 days. Kadeem states his diuretic was doubled. Allie Ca+ lab was low . Liudmila did order MAG and ionized ca levels. pt to stay on same dose of ca+. discussed s/s low Ca++ . also pt to bring in diuretic medicine next visit.
--- NOTE | 2022-10-01 15:46 | ONC.NURNOTE ---
per Liudmila Mansfield APRN pt to increase his calcium to tid. due to results of calcium lab. pt called and aware.
--- NOTE | 2022-10-06 08:23 | PC.NURSE ---
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 [facility]. Kadeem has PT/OT tomorrow, this RN will call to cancel those appointment. Pt is scheduled to see Dr. Ramos on 10/13/2022, Sudha will call with an update later this week. Sudha states that Kadeem made improvements in his speech yesterday so she is hopeful. Supportive listening provided.
== END 2022-11-09 23:59 | disposition home or self-care (01) ==
LOC: CCIC 08:17
PROVIDERS: Visit Provider Clinical Nurse Specialist
DX: Z51.11 Encounter for antineoplastic chemotherapy (principal); C25.9 Malignant neoplasm of pancreas, unspecified; C79.51 Secondary malignant neoplasm of bone; R42 Dizziness and giddiness; R77.8 Other specified abnormalities of plasma proteins; G62.0 Drug-induced polyneuropathy; T45.1X5A Adverse effect of antineoplastic and immunosuppressive drugs, initial encounter; D69.59 Other secondary thrombocytopenia; T50.905A Adverse effect of unspecified drugs, medicaments and biological substances, initial encounter; D64.9 Anemia, unspecified; G31.84 Mild cognitive impairment of uncertain or unknown etiology; R73.9 Hyperglycemia, unspecified; R55 Syncope and collapse; D84.821 Immunodeficiency due to drugs; Z79.899 Other long term (current) drug therapy; K52.1 Toxic gastroenteritis and colitis; T45.1X5D Adverse effect of antineoplastic and immunosuppressive drugs, subsequent encounter
CPT/HCPCS: 36415; 36591; 80053; 82330; 83735; 85025; 96376; 96413; J1100; J1626; J7050; J9201